=== PATIENT | male | born 1960 | race Caucasian/White ===

== ENCOUNTER 2016-03-09 09:03 | Inpatient (IN) | payer OTHER, MEDICARE ==
[~2016-03-09] VITALS: Ht 180.3 cm; Wt 60.0 kg
[2016-03-09] VITALS (23 sets, daily range): BP systolic 77–113; BP diastolic 48–81; PULSE 72–104; RESP 15–26; TEMP 97.9–98.7; O2SAT 95–100
[~2016-03-09 09:03] MED LIST: Z.0.NO CURRENT MEDS
[2016-03-09] MEDS ORDERED: SODIUM CHLOR 0.9% 1000 ML INJ 1,000 ML IV SCH (10:13)
[2016-03-09] MEDS ORDERED: ASPIRIN 81 MG CHEW TAB PO ONE (10:15)
[2016-03-09] MEDS ORDERED: SODIUM CHLORIDE 0.9% FLUSH 5 ML FLUSH IVF PRN (10:15)
[2016-03-09] MEDS ORDERED: methylPREDNISolone SOD SUCC 125 MG/2 ML VIAL IVP ONE (10:15)
[2016-03-09] MEDS ORDERED: ONDANSETRON HCL 4 MG/2 ML VIAL IVP ONE (10:15)
[2016-03-09] MEDS: NITROGLYCERIN 0.4 MG SL 25 TABS/BTL SL SCH ×3 (10:25→10:53)
[2016-03-09] MEDS: RESP: ALBUTEROL 2.5 MG/IPRATROPIUM 0.5 MG NEB (SCH) INH ×2 (10:27→10:28)
[2016-03-09 10:41] LABS: AUTOMATED NEUTROPHIL # 17.7 TH/MM3 (1.8-7.7); BASOPHIL # 0.1 TH/MM3 (0-0.2); BASOPHIL % 0.3 % (0.0-2.0); HEMATOCRIT 39.1 % (39.0-51.0); HEMO FLAGS DIFF FINAL; LYMPH % 9.4 % (9.0-44.0); MEAN CORPUSCULAR HGB CONC 33.7 % (32.0-36.0); MONO % 6.9 % (0.0-8.0); NEUT % 83.4 % (16.0-70.0); PLATELET COUNT 248 TH/MM3 (150-450); RED CELL DISTRIBUTION WIDTH 13.6 % (11.6-17.2); WHITE BLOOD COUNT 21.2 TH/MM3 (4.0-11.0)
[2016-03-09] MEDS ORDERED: PIPERACIL-TAZO 4.5 GM PREMIX 100 ML IV STA (10:56)
[2016-03-09] MEDS ORDERED: VANCOMYCIN INJ 1,000 MG in SODIUM CHLOR 0.9% 250 ML INJ 250 ML IV STA (10:56)
[2016-03-09] MEDS ORDERED: SODIUM CHLOR 0.9% 1000 ML INJ 1,000 ML IV ONE ×3 (11:00→11:15)
[2016-03-09] MEDS ORDERED: ACETAMINOPHEN 325 MG TAB PO ONE (11:00)
--- NOTE | 2016-03-09 11:00 | RADRPT ---
EXAM DATE/TIME: 03/09/2016 10:40 [facility] COMPARISON: No previous studies available for comparison. INDICATIONS : Shortness of breath. MEDICAL HISTORY : Emphysema. SURGICAL HISTORY : None. ENCOUNTER: Initial ACUITY: 3 days PAIN SCORE: 6/10 LOCATION: Bilateral upper chest FINDINGS: Very minimal parenchymal changes are present in the right base. The left lung is clear. The heart an d pulmonary vascularity are normal. The portion of the bony skeleton visualized is unremarkable. CONCLUSION: Minimal peripheral changes right base with mild hyperinflation. Landry Posadas MD FACR on March 09, 2016 at 10:58 Board Certified Radiologist. This report was verified electronically.
[2016-03-09 11:03] LABS: ANION GAP 13 MEQ/L (5-15); AST (GOT) 25 U/L (15-37); BLOOD UREA NITROGEN 21 MG/DL (7-18); CHLORIDE 99 MEQ/L (98-107); GLOMERULAR FILTRATION RATE 62 ML/MIN (>89); MAGNESIUM 2.3 MG/DL (1.5-2.5); SODIUM (NA) 136 MEQ/L (136-145)
[2016-03-09 11:05] LABS: APTT (PATIENT) 34.1 SEC (24.3-30.1); INTERNATIONAL NORMALIZED RATIO 1.1 RATIO; PROTHROMBIN TIME - PATIENT 11.8 SEC (9.8-11.6)
[2016-03-09 11:09] LABS: ALKALINE PHOSPHATASE 157 U/L (45-117); ALT (GPT) 22 U/L (12-78); CREATINE KINASE 169 U/L (39-308); TOTAL BILIRUBIN ADULT 0.6 MG/DL (0.2-1.0)
--- NOTE | 2016-03-09 11:11 | PD ---
HPI Chief Complaint: STEMI Alert Time Seen by Provider: 10:01 Travel History International Travel<30 days: No Contact w/Intl Traveler<30days: No Traveled to known affect area: No History of Present Illness HPI Patient is a 54 year old male with history of COPD, presents to ER with c/o of chest pain, cough/congestion, with nausea and vomiting and diarrhea since Wednesday. Patient reports that his last meal was on Wednesday morning, reports that he was unable to keep it down. Patient reports that he has been having right-sided chest pain which feels like a "pressure in my chest" which radiates to the left side of his chest as well as diaphoresis, shortness of breath, nausea and vomiting. Patient reports that his chest pain has been intermittent in nature, reports that his chest pain is worse with coughing as well as with exertion. Patient reports that he has not had history of chest pain like this in the past. Patient denies history of coronary disease. Patient reports that he does have a history of COPD, reports that he did go through a whole inhaler this past week and still feels short of breath. Patient reports that he has had no fevers or chills, reports that he has been coughing, reports that as he coughs he has increased productive yellow to green mucus. Denies sick contacts, but reports that he has been homeless and does not have a place to stay at this time PFSH Past Medical History Blood Disorders: No Anxiety: No Depression: No Cancer: No Cardiovascular Problems: No COPD: Yes Diabetes: No Diminished Hearing: No Endocrine: No Genitourinary: No Immune Disorder: No Musculoskeletal: No Neurologic: Yes Psychiatric: Yes Reproductive: No Respiratory: No Migraines: Yes Thyroid Disease: No Past Surgical History Other Surgery: Yes (FOREIGN BODY REMOVED LEFT HAND) Social History Alcohol Use: No Tobacco Use: Yes (2 PPD FOR 40 YEARS, more recently 1 ppd) Substance Use: No Allergies-Medications (Allergen,Severity, Reaction): Coded Allergies: No Known Allergies (Verified , 03/09/16) Reported Meds & Prescriptions Reported Meds & Active Scripts Active Reported Prazosin (Prazosin HCl) 2 Mg Cap 2 Mg PO HS Paroxetine (Paroxetine HCl) 30 Mg Tab 30 Mg PO DAILY Mirtazapine 15 Mg Tab 15 Mg PO BID Clonazepam 0.5 Mg Tab 0.5 Mg PO TID PRN Vitamin D3 (Cholecalciferol) 1,000 Unit Cap 1,000 Units PO DAILY Ranitidine (Ranitidine HCl) 150 Mg Tab 150 Mg PO BID Albuterol Neb (Albuterol Sulfate) 2.5 Mg/3 Ml Neb 2.5 Mg NEB Q4HR NEB PRN Proventil Hfa 6.7 GM Inh (Albuterol Sulfate) 90 Mcg/Act Aer 2 Puff INH Q6H PRN Gabapentin 600 Mg Tab 600 Mg PO QID Review of Systems General / Constitutional: No: Fever Eyes: No: Visual changes HENT: No: Headaches Cardiovascular: Positive: Chest Pain or Discomfort, Palpitations, Diaphoresis, Dyspnea on exertion Respiratory: Positive: Cough, Shortness of Breath, Wheezing Gastrointestinal: Positive: Nausea, Vomiting, Diarrhea, No: Abdominal Pain Genitourinary: No: Dysuria Musculoskeletal: No: Pain Skin: No Rash Neurologic: No: Weakness Psychiatric: No: Depression Endocrine: No: Polydipsia Hematologic/Lymphatic: No: Easy Bruising Physical Exam Narrative GENERAL: moderate distress SKIN: Warm and dry. HEAD: Atraumatic. Normocephalic. EYES: Pupils equal and round. No scleral icterus. No injection or drainage. ENT: No nasal bleeding or discharge. Mucous membranes pink and moist. NECK: Trachea midline. No JVD. CARDIOVASCULAR: Regular rate and rhythm. No murmur appreciated. RESPIRATORY: No accessory muscle use. Clear to auscultation. Breath sounds equal bilaterally. GASTROINTESTINAL: Abdomen soft, non-tender, nondistended. Hepatic and splenic margins not palpable. MUSCULOSKELETAL: No obvious deformities. No clubbing. No cyanosis. No edema. NEUROLOGICAL: Awake and alert. No obvious cranial nerve deficits. Motor grossly within normal limits. Normal speech. PSYCHIATRIC: Appropriate mood and affect; insight and judgment normal. Data Data Last Documented VS Vital Signs Date Time Temp Pulse Resp B/P Pulse Ox O2 Delivery O2 Flow Rate FiO2 03/09/16 12:06 93 19 91/57 99 Nasal Cannula 2.0 03/09/16 09:06 98.7 Orders Electrocardiogram (03/09/16 ) Electrocardiogram (03/09/16 10:11) B-Type Natriuretic Peptide (03/09/16 10:11) Ckmb (Isoenzyme) Profile (03/09/16 10:11) Complete Blood Count With Diff (03/09/16 10:11) Comprehensive Metabolic Panel (03/09/16 10:11) D-Dimer (03/09/16 10:11) Prothrombin Time / Inr (Pt) (03/09/16 10:11) Act Partial Throm Time (Ptt) (03/09/16 10:11) Troponin I (03/09/16 10:11) Lipase (03/09/16 10:11) Chest, Single Ap (03/09/16 10:11) Ecg Monitoring (03/09/16 10:11) Iv Access Insert/Monitor (03/09/16 10:11) Oximetry (03/09/16 10:11) Aspirin Chew (Aspirin Chew) (03/09/16 10:15) Sodium Chloride 0.9% Flush (Ns Flush) (03/09/16 10:15) Nitroglycerin Sl (Nitrostat Sl) (03/09/16 10:15) Magnesium (Mg) (03/09/16 10:11) Influenzae A/B Antigen (03/09/16 10:11) Methylprednisolone So Succ Inj (Solumedr (03/09/16 10:15) Albuterol-Ipratropium Neb (Duoneb Neb) (03/09/16 10:15) Ondansetron Inj (Zofran Inj) (03/09/16 10:15) Sodium Chlor 0.9% 1000 Ml Inj (Ns 1000 M (03/09/16 10:13) Echo 2d Comp W/Dopp(Routine) (03/09/16 ) Lactic Acid Sepsis Protocol (03/09/16 10:56) Blood Culture (03/09/16 10:56) Vancomycin Inj (Vancomycin Inj) (03/09/16 10:56) Piperacil-Tazo 4.5 Gm Premix (Zosyn 4.5 (03/09/16 10:56) Sodium Chlor 0.9% 1000 Ml Inj (Ns 1000 M (03/09/16 11:00) Sodium Chlor 0.9% 1000 Ml Inj (Ns 1000 M (03/09/16 11:00) Acetaminophen (Tylenol) (03/09/16 11:00) Ct Pulmonary Angiogram (03/09/16 11:06) I-Stat Creatinine (03/09/16 10:45) I-Stat Profile (03/09/16 10:45) Sodium Chlor 0.9% 1000 Ml Inj (Ns 1000 M (03/09/16 11:15) Heparin Infusion LYNDA.Q1H (03/09/16 11:11) Heparin Inj (Heparin Inj) (03/09/16 11:15) Heparin Inj (Heparin Inj) (03/09/16 17:15) Heparin Inj (Heparin Inj) (03/09/16 17:15) Heparin-D5w Inj (Heparin-D5w Inj) (03/09/16 11:15) Occult Blood (Hemoccult) Stool (03/09/16 11:11) CKMB (03/09/16 10:25) CKMB% (03/09/16 10:25) Iohexol 350 Inj (Omnipaque 350 Inj) (03/09/16 11:46) Admit Order (Ed Use Only) (03/09/16 12:04) Labs Laboratory Tests Test 03/09/16 03/09/16 10:25 10:45 White Blood Count 21.2 TH/MM3 Red Blood Count 4.00 MIL/MM3 Hemoglobin 13.2 GM/DL Hematocrit 39.1 % Mean Corpuscular Volume 98.0 FL Mean Corpuscular Hemoglobin 33.0 PG Mean Corpuscular Hemoglobin 33.7 % Concent Red Cell Distribution Width 13.6 % Platelet Count 248 TH/MM3 Mean Platelet Volume 8.7 FL Neutrophils (%) (Auto) 83.4 % Lymphocytes (%) (Auto) 9.4 % Monocytes (%) (Auto) 6.9 % Eosinophils (%) (Auto) 0.0 % Basophils (%) (Auto) 0.3 % Neutrophils # (Auto) 17.7 TH/MM3 Lymphocytes # (Auto) 2.0 TH/MM3 Monocytes # (Auto) 1.5 TH/MM3 Eosinophils # (Auto) 0.0 TH/MM3 Basophils # (Auto) 0.1 TH/MM3 CBC Comment DIFF FINAL Differential Comment Prothrombin Time 11.8 SEC Prothromb Time International 1.1 RATIO Ratio Activated Partial 34.1 SEC Thromboplast Time D-Dimer Quantitative (PE/DVT) 5.37 MG/L FEU Sodium Level 136 MEQ/L Potassium Level 4.0 MEQ/L Chloride Level 99 MEQ/L Carbon Dioxide Level 24.0 MEQ/L Anion Gap 13 MEQ/L Blood Urea Nitrogen 21 MG/DL Creatinine 1.20 MG/DL Estimat Glomerular Filtration 62 ML/MIN Rate Random Glucose 96 MG/DL Calcium Level 8.6 MG/DL Magnesium Level 2.3 MG/DL Total Bilirubin 0.6 MG/DL Aspartate Amino Transf 25 U/L (AST/SGOT) Alanine Aminotransferase 22 U/L (ALT/SGPT) Alkaline Phosphatase 157 U/L Total Creatine Kinase 169 U/L Creatine Kinase MB 4.1 NG/ML Troponin I 1.10 NG/ML B-Type Natriuretic Peptide 269 PG/ML Total Protein 7.8 GM/DL Albumin 2.6 GM/DL Lipase 144 U/L Bedside Hemoglobin 11.6 G/DL Bedside Hematocrit 34.0 % Bedside Sodium 137 MMOL/L Bedside Potassium 3.9 MMOL/L Bedside Chloride 104 MMOL/L Bedside Blood Urea Nitrogen 21 MG/DL Bedside Creatinine 0.9 MG/DL Bedside Glucose 93 MG/DL Lactic Acid Level 1.5 mmol/L [facility] Medical Decision Making Medical Screen Exam Complete: Yes Emergency Medical Condition: Yes Interpretation(s) Vital Signs Date Time Temp Pulse Resp B/P Pulse Ox O2 Delivery O2 Flow Rate FiO2 03/09/16 10:28 95 Nasal Cannula 2.00 03/09/16 09:10 105 18 97 Room Air 2 03/09/16 09:06 98.7 104 15 113/81 98 Differential Diagnosis Sepsis, bronchitis, pneumonia, gastroenteritis, acute cholecystitis, acute appendicitis, ACS, arrhythmia, electrolyte abnormality, PE, DVT Vital Signs Date Time Temp Pulse Resp B/P Pulse Ox O2 Delivery O2 Flow Rate FiO2 03/09/16 12:06 93 19 91/57 99 Nasal Cannula 2.0 03/09/16 11:41 20 03/09/16 11:37 100 22 103/65 99 Nasal Cannula 2.0 03/09/16 11:30 20 03/09/16 11:08 100 15 84/53 99 Nasal Cannula 4 03/09/16 11:01 100 16 77/48 99 Nasal Cannula 4 03/09/16 10:57 104 15 89/55 99 Nasal Cannula 4 03/09/16 10:51 99 4.00 03/09/16 10:47 99 17 90/59 99 Room Air 4 03/09/16 10:28 95 Nasal Cannula 2.00 03/09/16 09:10 105 18 97 Room Air 2 03/09/16 09:06 98.7 104 15 113/81 98 CBC & BMP Diagram 03/09/16 10:25 Laboratory Tests Test 03/09/16 03/09/16 10:25 10:45 White Blood Count 21.2 TH/MM3 (4.0-11.0) Red Blood Count 4.00 MIL/MM3 (4.50-5.90) Hemoglobin 13.2 GM/DL (13.0-17.0) Hematocrit 39.1 % (39.0-51.0) Mean Corpuscular Volume 98.0 FL (80.0-100.0) Mean Corpuscular Hemoglobin 33.0 PG (27.0-34.0) Mean Corpuscular Hemoglobin 33.7 % Concent (32.0-36.0) Red Cell Distribution Width 13.6 % (11.6-17.2) Platelet Count 248 TH/MM3 (150-450) Mean Platelet Volume 8.7 FL (7.0-11.0) Neutrophils (%) (Auto) 83.4 % (16.0-70.0) Lymphocytes (%) (Auto) 9.4 % (9.0-44.0) Monocytes (%) (Auto) 6.9 % (0.0-8.0) Eosinophils (%) (Auto) 0.0 % (0.0-4.0) Basophils (%) (Auto) 0.3 % (0.0-2.0) Neutrophils # (Auto) 17.7 TH/MM3 (1.8-7.7) Lymphocytes # (Auto) 2.0 TH/MM3 (1.0-4.8) Monocytes # (Auto) 1.5 TH/MM3 (0-0.9) Eosinophils # (Auto) 0.0 TH/MM3 (0-0.4) Basophils # (Auto) 0.1 TH/MM3 (0-0.2) CBC Comment DIFF FINAL Differential Comment Prothrombin Time 11.8 SEC (9.8-11.6) Prothromb Time International 1.1 RATIO Ratio Activated Partial 34.1 SEC Thromboplast Time (24.3-30.1) D-Dimer Quantitative (PE/DVT) 5.37 MG/L FEU (0.00-0.50) Sodium Level 136 MEQ/L (136-145) Potassium Level 4.0 MEQ/L (3.5-5.1) Chloride Level 99 MEQ/L (98-107) Carbon Dioxide Level 24.0 MEQ/L (21.0-32.0) Anion Gap 13 MEQ/L (5-15) Blood Urea Nitrogen 21 MG/DL (7-18) Creatinine 1.20 MG/DL (0.60-1.30) Estimat Glomerular Filtration 62 ML/MIN (>89) Rate Random Glucose 96 MG/DL (74-106) Calcium Level 8.6 MG/DL (8.5-10.1) Magnesium Level 2.3 MG/DL (1.5-2.5) Total Bilirubin 0.6 MG/DL (0.2-1.0) Aspartate Amino Transf 25 U/L (15-37) (AST/SGOT) Alanine Aminotransferase 22 U/L (12-78) (ALT/SGPT) Alkaline Phosphatase 157 U/L (45-117) Total Creatine Kinase 169 U/L (39-308) Creatine Kinase MB 4.1 NG/ML (0.5-3.6) Troponin I 1.10 NG/ML (0.02-0.05) B-Type Natriuretic Peptide 269 PG/ML (0-100) Total Protein 7.8 GM/DL (6.4-8.2) Albumin 2.6 GM/DL (3.4-5.0) Lipase 144 U/L (73-393) Bedside Hemoglobin 11.6 G/DL (12.0-17.0) Bedside Hematocrit 34.0 % (38.0-51.0) Bedside Sodium 137 MMOL/L (138-146) Bedside Potassium 3.9 MMOL/L (3.5-4.9) Bedside Chloride 104 MMOL/L (98-109) Bedside Blood Urea Nitrogen 21 MG/DL (8-26) Bedside Creatinine 0.9 MG/DL (0.8-1.3) Bedside Glucose 93 MG/DL (60-95) Lactic Acid Level 1.5 mmol/L (0.4-2.0) Narrative Course Patient is a 55-year-old male who presents to emergency room with complaints of chest pain and shortness of breath with nausea vomiting and diarrhea since Wednesday morning. 1) chest pain: Patient reports that his chest pain has been intermittent since Wednesday morning, patient reports chest pain to his right chest which radiates to his left chest, patient reports sensation of "elephant on my chest." Patient was placed on night monitor upon arrival to emergency room. EKG obtained. EKG from [place] (pt was sent to ER from [place]). EKG from [place] at 0833: sinus tach at 110bpm, qt/qtc: 334/452, st seg elevation V3 - ekg repeated at [place], EKG at 1030 sinus tach at 101bpm, qt/qtc: 331/389, st seg elevation V1-V2 - repeat ekg ordered - stemi alert call overhead case reviewed with dr joe who evaluated pt in ER 2) cough/congestion: Patient with history of COPD, patient with decreased breath sounds on evaluation. Patient given Solu-Medrol as well as neb treatments. X-ray of the chest ordered for further evaluations of possible pneumonia. Patient initial vital signs with only tachycardia, patient did not have a SIRS criteria upon initial evaluation. 3) N/V/D - pt with no abdominal pain. Reports increased nausea vomiting and diarrhea after eating [employer] on Wednesday morning. Plan to rehydrate patient and give him antinausea medications. Patient with the white blood cell count of 21,000, patient now tachycardic and hypertensive, patient most likely septic at this time, 30 cc/kg IV fluid bolus ordered as well as lactate and blood cultures and Zosyn and vancomycin. Stat echo was ordered and performed - no evidence of any wall motion defects at this time. Concern for pulmonary embolism versus ACS at this time. Patient will not go to cath last at this time, CTA ordered for further evaluation of possible PE. Heparin bolus and heparin drip ordered for treatment of presumed PE CTA with sinopulmonary embolism with extension into the bilateral upper and lower lobe of the pulmonary arteries, this was reviewed with patient in detail - pt initially refused heparin and heparin gtt, pt now agreeable to heparin case reviewed with Dr Perry who accepts pt to service in ICU pt continues to be unstable in ER, case reviewed with dr perry - decision was made to administer TPA. The risks and benefits of TPA were reviewed with Dr. Perry as well as myself in detail. Patient did sign consent for TPA -patient understands all risks and benefits for TPA. Critical Care Narrative Aggregate critical care time was 75 minutes. Time to perform other separately billable procedures was not included in the critical care time. My time did not include minutes spent treating any other patients simultaneously or on activities that did not directly contribute to the patient's treatment. The services I provided to this patient were to treat and/or prevent clinically significant deterioration that could result in: , decompensation, deterioration I provided critical care services requiring my management, as noted below: Chart data review, documentation time, medication orders and management, vital sign assessments/reviewing monitor data, ordering and reviewing lab tests, ordering and interpreting/reviewing x-rays and diagnostic studies, care of the patient and discussion of the patient with the admitting physicians. Sepsis Criteria SIRS Criteria (2 or more): Heart rate over 90, WBC > 09846, < 4000 or > 10% bands Severe Sepsis (+one): Hypotension Criteria Outcome: Meets SIRS criteria Physician Communication Physician Communication case reviewed with Dr Joe and Dr Crocker Diagnosis Primary Impression: Saddle pulmonary embolus Qualified Code: I26.02 - Acute saddle pulmonary embolism with acute cor pulmonale Additional Impressions: Sepsis Qualified Code: A41.9 - Sepsis, due to unspecified organism NSTEMI (non-ST elevated myocardial infarction) Admitting Information Admitting Physician Requests: Admit Vanita Brown DO Mar 09, 2016 11:11
[2016-03-09 11:12] LABS: I-STAT POTASSIUM 3.9 MMOL/L (3.5-4.9)
[2016-03-09] MEDS ORDERED: HEPARIN SODIUM - IV 10,000 UNITS/10 ML VIAL IV ONE (11:15)
[2016-03-09 11:33] LABS: CKMB 4.1 NG/ML (0.5-3.6)
[2016-03-09] MEDS ORDERED: IOHEXOL 350 MG/ML 10 ML VIAL (for RAD DIAG) IV ONE (11:46)
--- NOTE | 2016-03-09 11:46 | RADRPT ---
EXAM DATE/TIME: 03/09/2016 11:29 [facility] COMPARISON: CHEST SINGLE AP, March 09, 2016, 10:40. INDICATIONS : Right sided chest pain cough for three days. IV CONTRAST: 70 cc Omnipaque 350 (iohexol) IV RADIATION DOSE: 21.31 CTDIvol (mGy) MEDICAL HISTORY : Chronic obstructive pulmonary disease. SURGICAL HISTORY : None. ENCOUNTER: Initial ACUITY: 3 days PAIN SCALE: 8/10 LOCATION: Right chest TECHNIQUE: Volumetric scanning of the chest was performed using a pulmonary embolism protocol MIP images were re constructed. Using automated exposure control and adjustment of the mA and/or kV according to patien t size, radiation dose was kept as low as reasonably achievable to obtain optimal diagnostic quality images. FINDINGS: Patient demonstrates extensive emphysematous changes with varying areas of interstitial or minimal al veolar consolidation in the bases. There is extensive pulmonary embolization inclusive of saddle embo sanket extending into both upper and lower lobe pulmonary arteries. CONCLUSION: Saddle pulmonary embolism with extension into bilateral upper and lower lobe pulmonary arteries. Exte nsive emphysematous changes. Varying areas of alveolar minimal patchy consolidation and interstitial changes in lung bases. Report called to referring physician at 11: 44 AM. Yves Mccain MD on March 09, 2016 at 11:41 Board Certified Radiologist. This report was verified electronically.
[2016-03-09] MEDS: HEPARIN-D5W INJ 250 ML IV SCH ×2 (11:54→23:04)
[2016-03-09] MEDS ORDERED: ALBU6.7H INH (12:08)
[2016-03-09] MEDS ORDERED: ALBU0.08 NEB ×2 (12:08)
[2016-03-09] MEDS ORDERED: GABA600T PO (12:08)
[2016-03-09] MEDS ORDERED: RANI150T PO (12:09)
[2016-03-09] MEDS ORDERED: PRAZ2CAP PO (12:17)
[2016-03-09] MEDS ORDERED: VITA100036 PO (12:17)
[2016-03-09] MEDS ORDERED: PARO30TA2 PO (12:17)
[2016-03-09] MEDS ORDERED: MIRTA15 PO (12:17)
[2016-03-09] MEDS ORDERED: CLON0.5T PO (12:17)
[2016-03-09] MEDS ORDERED: RESP: ALBUTEROL 2.5 MG/IPRATROPIUM 0.5 MG NEB (PRN) INH (12:45)
[2016-03-09] MEDS ORDERED: POTASSIUM CL 40 MEQ/30 ML LIQ UDC PO/TUBE PRN ×2 (12:45)
[2016-03-09] MEDS ORDERED: CHLORHEXIDINE GLUCONATE 2 % 1 PACK (2 CLOTHS) TOP PRN (12:45)
[2016-03-09] MEDS ORDERED: MAGNESIUM OXIDE 400 MG TAB PO PRN (12:45)
[2016-03-09] MEDS ORDERED: MISCELLANEOUS NURSING INFORMATION XX SCH (12:45)
[2016-03-09] MEDS ORDERED: DEXTROSE 50% IN WATER 50 ML VIAL(D50) IV PUSH PRN (12:45)
[2016-03-09] MEDS ORDERED: ACETAMINOPHEN 325 MG TAB PO PRN (12:45)
[2016-03-09] MEDS ORDERED: MAGNESIUM SULFATE INJ 4 GM in SODIUM CHLORIDE 0.9% INJ 92 ML IV PRN (12:45)
[2016-03-09] MEDS ORDERED: POTASSIUM CHLOR 20 MEQ PREMIX 100 ML IV PRN ×2 (12:45)
[2016-03-09] MEDS ORDERED: POTASSIUM PHOSPHATE INJ 30 MMOL in SODIUM CHLOR 0.9% 250 ML INJ 250 ML IV PRN (12:45)
[2016-03-09] MEDS ORDERED: ONDANSETRON HCL 4 MG/2 ML VIAL IV PRN (12:45)
[2016-03-09] MEDS ORDERED: POTASSIUM PHOSPHATE MONOBASIC 500 MG TAB PO/TUBE PRN (12:45)
[2016-03-09] MEDS ORDERED: SODIUM CHLORIDE 0.9% FLUSH 5 ML FLUSH IV FLUSH PRN (12:45)
[2016-03-09] MEDS ORDERED: POTASSIUM CHLOR 40 MEQ PREMIX 100 ML IV PRN ×2 (12:45)
[2016-03-09] MEDS ORDERED: POTASSIUM PHOSPHATE MONOBASIC 500 MG TAB PO PRN (12:45)
[2016-03-09] MEDS ORDERED: SODIUM PHOSPHATE INJ 30 MMOL in SODIUM CHLOR 0.9% 250 ML INJ 240 ML IV PRN (12:45)
[2016-03-09] MEDS ORDERED: MAGNESIUM SULFATE INJ 2 GM in SODIUM CHLORIDE 0.9% INJ 96 ML IV PRN (12:45)
[2016-03-09] MEDS ORDERED: ALTEPLASE IV ONE ×2 (13:00)
[2016-03-09] MEDS ORDERED: STERILE WATER IV ONE ×2 (13:00)
[2016-03-09] MEDS ORDERED: [UNRECOGNIZED DRUG - REMARK] OTHER PRN (13:00)
--- NOTE | 2016-03-09 16:17 | EC ---
Study Study Date:03/09/2016 STUDY CONCLUSIONS SUMMARY - Left ventricle: The cavity size was normal. Wall thickness was normal. Systolic function was normal. The estimated ejection fraction was 60%. Wall motion was normal; there were no regional wall motion abnormalities. - Right ventricle: The cavity size was dilated. Wall thickness was normal. - Tricuspid valve: Mild regurgitation. - Pulmonary arteries: Systolic pressure was moderately increased. PA peak pressure: 55mm Hg (S). If LV function is below 40, please consider prescribing an ACEI or ARB or document rationale for non-use. PROCEDURE DATA STUDY STATUS: Elective. Procedure: Transthoracic echocardiography. Image quality was good. Scanning was performed from the parasternal, apical, and subcostal acoustic windows. Study completion: The patient tolerated the procedure well. Transthoracic echocardiography. M-mode, complete 2D, complete spectral Doppler, and color Doppler. Height: Height: 71in. Weight: Weight: 126.7lb. Body mass index: BMI: 17.7kg/m^2. Body surface area: BSA: 1.74m^2. Patient status: Inpatient. CARDIAC ANATOMY LEFT VENTRICLE: The cavity size was normal. Wall thickness was normal. Systolic function was normal. The estimated ejection fraction was 60%. Wall motion was normal; there were no regional wall motion abnormalities. AORTIC VALVE: Trileaflet; normal thickness leaflets. Doppler: Transvalvular velocity was within the normal range. There was no stenosis. No regurgitation. AORTA: Aortic root: The aortic root was normal in size. MITRAL VALVE: Structurally normal valve. Doppler: Transvalvular velocity was within the normal range. There was no evidence for stenosis. No regurgitation. LEFT ATRIUM: The atrium was normal in size. RIGHT VENTRICLE: The cavity size was dilated. Wall thickness was normal. PULMONIC VALVE: Doppler: Transvalvular velocity was within the normal range. There was no evidence for stenosis. No regurgitation. TRICUSPID VALVE: Structurally normal valve. Doppler: Transvalvular velocity was within the normal range. Mild regurgitation. PULMONARY ARTERY: The main pulmonary artery was normal-sized. Systolic pressure was moderately increased. RIGHT ATRIUM: The atrium was normal in size. PERICARDIUM: There was no pericardial effusion. SYSTEMIC VEINS: Inferior vena cava: The vessel was normal in size. Patient weight: 126.7lb _Ejection fraction:_ 65-75% _Fractional shortening:_ 32% up to 5Kg 5-11.5Kg 11.6-22.9Kg 23-45Kg 45-57Kg Aortic Root 7-13 <17 13-22 17-27 17-27 LA diam 6-13 <23 24-38 33-47 37-40 RVID 10-17 7-15 7-15 7-18 8-17 LVIDd 12-22 <32 24-38 33-47 37-40 LVPW 2-4 3-6 5-7 6-8 7-8 IVS 2-4 3-6 5-7 6-8 7-8 BASIC MEASUREMENTS ADULT Normal Left ventricle LV internal dimension, ED, chordal level, *31.8 mm 43-52 PLAX LV internal dimension, ES, chordal level, *22 mm 23-38 PLAX Fractional shortening, chordal level, PLAX 31 % >29 LV posterior wall thickness, ED 8.05 mm IVS/LVPW ratio, ED 1.01 <1.3 Ventricular septum Septal thickness, ED 8.11 mm Aortic valve Leaflet separation 22 mm 15-26 Aorta Root diameter, ED 34 mm Left atrium Anterior-posterior dimension 27 mm Anterior-posterior dimension index 1.55 cm/m^2 <2.2 BASIC MEASUREMENTS ADULT Normal Aortic valve Leaflet separation 22 mm 15-26 DOPPLER MEASUREMENTS ADULT Normal Main pulmonary artery Pressure, S *55 mm Hg =30 Tricuspid valve Regurgitant peak velocity 293 cm/s Peak RV-RA gradient, S 34 mm Hg Maximal regurgitant velocity 293 cm/s Right ventricle RV pressure, S *56 mm Hg <30 Pulmonic valve Peak velocity, S 57.1 cm/s LEGEND: Mean values are shown as u=mean value. Asterisk (*) nathan values outside specified normal range. Prepared and signed by Ayden Schumacher [id number]
--- NOTE | 2016-03-09 17:07 | EKG ---
Date Performed: 03/09/2016 Time Performed: 10:30:39 PTAGE: 55 years EKG: SINUS TACHYCARDIA MARKED RIGHT AXIS DEVIATION INCOMPLETE RIGHT BUNDLE BRANCH BLOCK ANTEROSE PTAL MYOCARDIAL INFARCTION ACUTE IA NO PREVIOUS TRACING DOCTOR: Lorraine Borden Interpretating Date/Time 03/09/2016 17:05:55
--- NOTE | 2016-03-09 17:08 | EKG ---
Date Performed: 03/09/2016 Time Performed: 10:46:33 PTAGE: 55 years EKG: Sinus rhythm WITH SHORT GA INTERVAL MARKED LEFT AXIS DEVIATION SEPTAL MYOCARDIAL INFARCTION MODERATE T-WAVE ABNOR MALITY, CONSIDER ANTERIOR ISCHEMIA ABNORMAL ECG Compared to prior tracing no significant change INTER PRETATION BASED ON A DEFAULT AGE OF 40 YEARS PREVIOUS TRACING : 03/09/2016 10.30 DOCTOR: Lorraine Borden Interpretating Date/Time 03/09/2016 17:06:07
[2016-03-09] MEDS ORDERED: HEPARIN SODIUM - IV 10,000 UNITS/10 ML VIAL IV PRN ×2 (17:15)
[2016-03-09] MEDS: INSULIN NovoLIN REGULAR SUPPLEMENTAL SCALE SQ SCH ×2 (18:00→23:18)
[2016-03-09] MEDS: DOCUSATE SODIUM 50 MG/SENNA 8.6 MG TAB PO SCH (21:00)
--- NOTE | 2016-03-09 21:55 | HHI.HP ---
[facility] Service Critical Care Medicine Primary Care Physician Joey [facility] Admission Diagnosis Saddle Pulmonary embolism, Sepsis Diagnosis: Chief Complaint: chest pain Travel History International Travel<30 Days: No Contact w/Intl Traveler <30 Da: No Traveled to Known Affected Are: No History of Present Illness This is a 54-year-old male with a long past history of smoking who presents to the emergency department complaining of chest pain since Wednesday morning. Patient initially was mildly hypotensive. Patient endorsed shortness of breath nausea and vomiting. Initially there were some cconcern over st elevations in a STEMI alert was called. Dr. Rosario evaluated the patient and ordered a stat echocardiogram which demonstrated McConnel's sign, RV strain, RV dilation, severe RV dysfunction. Laboratory data is pertinent for a mildly elevated BNP and mildly elevated troponin. This prompted a stat CT pulmonary angiogram which demonstrated large saddle embolus with extension into the subsegmental pulmonary arteries. Critical care medicine is consulted to evaluate and manage his massive pulmonary embolus with evidence of RV strain. He was also initially hypotensive with systolic in 80s and given a 1 L fluid bolus. On my evaluation is slightly more stable with systolic 91. Of note, he is recently homeless and for the last few weeks he is lives out of his car and he spent long periods of time sitting and sleeping in his car in smaller spaces and relatively immobile. Review of Systems Constitutional: DENIES: Diaphoretic episodes, Chills, Dizziness Respiratory: DENIES: Apneas, Cough, Snoring, Wheezing, Hemoptysis, Sputum production, Shortness of breath Cardiovascular: DENIES: Chest pain, Palpitations, Syncope, Dyspnea on Exertion , PND, Lower Extremity Edema, Orthopnea, Claudication Gastrointestinal: DENIES: Abdominal pain, Black stools, Bloody stools, Constipation, Diarrhea, Nausea, Vomiting Hematologic/lymphatic: DENIES: Bruising Neurologic: DENIES: Headache Past Family Social History Allergies: Coded Allergies: No Known Allergies (Verified , 03/09/16) Past Medical History cervical spondylosis. no history of easy bruising, frequent bleeding, or bleeding problems, coagulopathy. Past Surgical History finger fracture repair Reported Medications none Active Ordered Medications see MAR Family History no family history of bleeding diatheses. Social History smokes 1ppd x many years. denies etoh. denies other drugs. Physical Exam Vital Signs Vital Signs Date Time Temp Pulse Resp B/P Pulse Ox O2 Delivery O2 Flow Rate FiO2 03/09/16 19:53 100 Nasal Cannula 4.00 03/09/16 19:53 97.9 75 20 98/63 100 03/09/16 19:01 75 22 97/66 98 Nasal Cannula 4 03/09/16 18:00 78 17 95/68 98 Nasal Cannula 4.0 03/09/16 17:00 78 22 94/64 98 Nasal Cannula 4.0 03/09/16 16:00 84 24 92/62 98 Nasal Cannula 4.0 03/09/16 15:35 84 22 102/69 97 Nasal Cannula 4.0 03/09/16 15:00 87 20 98/65 97 Nasal Cannula 4.0 03/09/16 14:35 85 19 91/62 97 Nasal Cannula 4.0 03/09/16 14:01 89 17 89/62 99 Nasal Cannula 4.0 03/09/16 13:31 92 24 100/64 98 Nasal Cannula 2.0 03/09/16 13:04 97 26 108/67 97 Nasal Cannula 2.0 03/09/16 12:18 95 18 91/59 98 Nasal Cannula 2.0 03/09/16 12:06 93 19 91/57 99 Nasal Cannula 2.0 03/09/16 11:41 20 03/09/16 11:37 100 22 103/65 99 Nasal Cannula 2.0 03/09/16 11:30 20 03/09/16 11:08 100 15 84/53 99 Nasal Cannula 4 03/09/16 11:01 100 16 77/48 99 Nasal Cannula 4 03/09/16 10:57 104 15 89/55 99 Nasal Cannula 4 03/09/16 10:51 99 4.00 03/09/16 10:47 99 17 90/59 99 Room Air 4 03/09/16 10:28 95 Nasal Cannula 2.00 03/09/16 09:10 105 18 97 Room Air 2 03/09/16 09:06 98.7 104 15 113/81 98 Physical Exam gen: middle aged male, lying in bed. heent: pupils equal, round, reactive. mucous membranes moist. neck: +jvd. trachea midline. chest: equal chest rise. clear to auscultation. mildly tachypneic. cv: s1 s2 with loud p2 and rv heave. abd: soft, nontender, nondistended. no guarding. extr: no peripheral edema. distal pulses 1+ neuro: rass 0. cam -. gcs 15. no gross focal motor sensory deficits. Laboratory Laboratory Tests Test 03/09/16 03/09/16 10:25 10:45 White Blood Count 21.2 Red Blood Count 4.00 Hemoglobin 13.2 Hematocrit 39.1 Mean Corpuscular Volume 98.0 Mean Corpuscular Hemoglobin 33.0 Mean Corpuscular Hemoglobin 33.7 Concent Red Cell Distribution Width 13.6 Platelet Count 248 Mean Platelet Volume 8.7 Neutrophils (%) (Auto) 83.4 Lymphocytes (%) (Auto) 9.4 Monocytes (%) (Auto) 6.9 Eosinophils (%) (Auto) 0.0 Basophils (%) (Auto) 0.3 Neutrophils # (Auto) 17.7 Lymphocytes # (Auto) 2.0 Monocytes # (Auto) 1.5 Eosinophils # (Auto) 0.0 Basophils # (Auto) 0.1 CBC Comment DIFF FINAL Differential Comment Prothrombin Time 11.8 Prothromb Time International 1.1 Ratio Activated Partial 34.1 Thromboplast Time D-Dimer Quantitative (PE/DVT) 5.37 Sodium Level 136 Potassium Level 4.0 Chloride Level 99 Carbon Dioxide Level 24.0 Anion Gap 13 Blood Urea Nitrogen 21 Creatinine 1.20 Estimat Glomerular Filtration 62 Rate Random Glucose 96 Calcium Level 8.6 Magnesium Level 2.3 Total Bilirubin 0.6 Aspartate Amino Transf 25 (AST/SGOT) Alanine Aminotransferase 22 (ALT/SGPT) Alkaline Phosphatase 157 Total Creatine Kinase 169 Creatine Kinase MB 4.1 Troponin I 1.10 B-Type Natriuretic Peptide 269 Total Protein 7.8 Albumin 2.6 Lipase 144 Bedside Hemoglobin 11.6 Bedside Hematocrit 34.0 Bedside Sodium 137 Bedside Potassium 3.9 Bedside Chloride 104 Bedside Blood Urea Nitrogen 21 Bedside Creatinine 0.9 Bedside Glucose 93 Lactic Acid Level 1.5 Date/Time Procedure Status Source Growth 03/09/16 10:45 Aerobic Blood Culture Received Blood Peripheral Pending 03/09/16 10:45 Anaerobic Blood Culture Received Blood Peripheral Pending 03/09/16 10:28 Influenza Types A,B Antigen (JUDIE) - Final Complete Nasal Aspirate NEGATIVE FOR FLU A AND B ANTIGEN.... Result Diagram: 03/09/16 1025 03/09/16 1025 Assessment and Plan Assessment and Plan Assessment: This is a 55-year-old male with really only past medical history of smoking who now has a massive saddle pulmonary embolus with hemodynamic compromise. I have spoken with Dr. Chery the on-call CT surgeon, and he feels that the patient would not be an appropriate candidate for open pulmonary embolectomy unless he fails medical management first. I discussed the care with both Dr. Rosario and Dr. Butler the interventional radiologist, together we all feel that systemic TPA may be a better option for him clinically then catheter directed TPA, given the size of the embolus and the degree of hemodynamic compromise. I also talked to the ER physician, who again agrees with the plan of systemic thrombolysis. I had a long conversation with the patient were explained the significant risks of bleeding including major intracranial or GI bleeding with systemic thrombolysis. However, explained that there was likely a larger risk of sudden cardiac with this degree of massive pulmonary embolus. The patient understood these risks and agreed to pursue thrombolysis. We will proceed with tPA 100 mg. I've also spoken to Dr. Rosario, and we believe that he is at high risk for ongoing or rethrombosis after TPA, and we believe that an echo regulation with IV heparin should be instituted at the earliest safest time. We both agree that this time is likely 6 hours post TPA infusion. For now he remains critically ill with very high risk of sudden cardiac . Active problems: Massive saddle pulmonary embolus Acute severe right heart dysfunction Acute severe pulmonary hypertension Plan: Admit to the ICU IV TPA 100 mg every 2 hours Every hour neuro checks Before TPA, Will place Caceres catheter for accurate I's and O's. Trend hemoglobins If the patient becomes worseningly unstable, we'll start epinephrine for inotropic support Wean oxygen by nasal cannula for goal SPO2 greater than 92% Incentive spirometer to bedside We will need follow-up echo in about a week. Restart heparin infusion, no bolus, goal PTT 60-80, after 6 hours. Clear liquid diet Daily BMP, CBC SCDs Protonix for GI prophylaxis This patient remains critically ill with one or more organ systems which are or may become a threat to life. I have spent in excess of 50 minutes discontinuously in the care and management of this patient. This time is exclusive of procedures, and includes, but is not limited to, evaluation of the patient, review of the medical record, discussions with family, consultants, nursing staff, or respiratory therapy, and documentation in the medical record. Code Status Full Code Discussed Condition With ER physician, Dr. Rosario with cardiology, Dr. Butler with IR, Dr. Fallon with CT surgery. Leonides Crocker MD Mar 09, 2016 21:55
[2016-03-09 22:27] LABS: APTT (PATIENT) 37.7 SEC (24.3-30.1)
[2016-03-09] MEDS: SODIUM CHLORIDE 0.9% FLUSH 5 ML FLUSH IV FLUSH SCH (23:13)
[2016-03-10] VITALS (13 sets, daily range): BP systolic 81–112; BP diastolic 53–77; PULSE 61–89; RESP 15–20; TEMP 97.7–98.6; O2SAT 97–100
[2016-03-10 00:15] LABS: REVIEW FLAG FINAL
[2016-03-10] MEDS: CHLORHEXIDINE GLUCONATE 2 % 1 PACK (2 CLOTHS) TOP SCH (02:46)
[2016-03-10] MEDS: INSULIN NovoLIN REGULAR SUPPLEMENTAL SCALE SQ SCH ×3 (05:42→16:00)
--- NOTE | 2016-03-10 06:09 | MB ---
cc: COSME VUONG DO DATE OF CONSULTATION 03/09/2016 REASON FOR CONSULTATION STEMI Alert. HISTORY OF PRESENT ILLNESS Vihn Leonard is a pleasant 54-year-old male who presented to [facility] on March 09, 2016, with a complaint of chest pain. He states that the chest pain started two days ago on Wednesday morning. At that time he felt like he ate some bad [employer] and then got nausea, vomiting and diarrhea. He started having right-sided chest pain which felt sharp and radiated to his left side. He did mention pressure in his chest at one point but the pain seems to be more sharp in nature and intensified by moving in a deep breath. He also was diaphoretic and short of breath. It appears that he originally presented to the [facility] and they sent him here. EKG at the [facility] shows incomplete right bundle branch block with minimal elevation anteriorly. Upon arrival to [facility] EKG was done which showed sinus tachycardia, incomplete right bundle branch block with minimal elevation anteriorly concerning for a right strain pattern. I was called emergently due to possible ST-elevation myocardial infarction. PAST MEDICAL HISTORY 1. COPD. 2. Hypertension. 3. Anxiety. 4. Depression. 5. Gastroesophageal reflux disease. PAST SURGICAL HISTORY Foreign body removed from left hand. ALLERGIES No known drug allergies. MEDICATIONS 1. Prazosin 2 mg every night 2. Gabapentin 600 mg q.i.d. 3. Mirtazapine 15 mg b.i.d. 4. Paroxetine 30 mg daily 5. Clonazepam 0.5 mg t.i.d. as needed for anxiety. 6. Albuterol 2 puffs every 6 hours as needed for shortness of breath. 7. Ranitidine 150 mg b.i.d. 8. Vitamin D3 1000 units daily. SOCIAL HISTORY Denies alcohol or substance abuse. Does smoke two packs a day for 40 years, but more recently smoking around 1 pack per day. FAMILY HISTORY Denies premature coronary artery disease or sudden cardiac within the family. REVIEW OF SYSTEMS Fourteen systems were reviewed in the emergency room records and above pertinent positives and negatives above, otherwise negative. PHYSICAL EXAMINATION VITAL SIGNS: Temperature 98.7, heart rate 104, blood pressure 113/81, respirations 15, pulse ox 98%. IN GENERAL: The patient appears in moderate distress. He appears older than his stated age. Extraocular muscles intact. Poor dentition. Mucous membranes moist. NECK: Supple. No JVD at 45 degrees. No carotid bruits heard bilaterally. Carotid upstroke is brisk in nature. HEART: Tachycardiac. Positive first and second heart sounds with no murmurs noted. LUNGS: Decreased breath sounds throughout with a little air movement. No overt wheezes, rales or rhonchi. ABDOMEN: Soft, nontender, nondistended. No organomegaly noted. EXTREMITIES: No clubbing, cyanosis or edema. Femoral and distal pulses intact bilaterally. NEUROLOGICALLY: No focal deficits. OSTEOPATHIC EXAM: No kyphoscoliosis, lordosis or paraspinal tender points. LABORATORY FINDINGS White blood cells 21.2, hemoglobin 13.2, hematocrit 39.1, platelets 248. D-dimer 5.37. Potassium 3.9, BUN 21, creatinine 1.20. Troponin 1.1. BNP to 69. ELECTROCARDIOGRAM (March 09, 2016 at 10:30) Sinus tachycardia at 101 beats per minute, right axis deviation, incomplete right bundle branch block, minimal ST elevations anteriorly, concern for possible acute OR. IMPRESSIONS 1. Pleuritic chest pain which is atypical for ST-elevation myocardial infarction. 2. Extensive saddle pulmonary embolus by CTA. 3. Elevated troponin secondary to saddle embolus. 4. History of hypertension. 5. History of COPD. RECOMMENDATIONS 1. Vinh Leonard originally presented as a STEMI Alert. Repeat EKG showed minimal S-T elevation. As there was a concern for possible STEMI vs pulmonary embolism, a STAT echo was ordered to look for wall motion abnormalities as well as right ventricular strain. 2. STAT echo was done showing a hyperdynamic left ventricle with no wall motion abnormalities. Right ventricle appears to be extensively dilated with Garcia sign. 3. At this point it was felt prudent that the patient should be started on a heparin drip with a heparin bolus for presumed PE. 4. At that time he underwent a CTA of the chest which showed a large saddle embolus. 5. Dr. Butler spoke with me and I agree that, because of the patient's hypotension and extensive thrombus, considerations should be made for systemic TPA versus embolectomy. 6. At this time Dr. Butler took over care for the pulmonary embolus from Dr. Brown and myself. He did discuss with me doing systemic TPA and I agreed that it was Mr. Horacio's best option in his current situation. 7. We will continue to follow. 8. He will need a repeat echo in 5-7 days to look at his overall right ventricular strain. 9. Further recommendations will be made based on the hospital course. Thank you for allowing me to see Vinh Leonard. If there are any questions, please do not hesitate to call. Cosme Vuong DO VGP/SSB /4:19 PM /5:52 AM [email or web address]
[2016-03-10 09:00] LABS: MEAN CELL VOLUME 98.9 FL (80.0-100.0); MEAN CORPUSCULAR HGB CONC 33.4 % (32.0-36.0); PLATELET COUNT 205 TH/MM3 (150-450); RED BLOOD COUNT 3.23 MIL/MM3 (4.50-5.90); RED CELL DISTRIBUTION WIDTH 13.6 % (11.6-17.2); REVIEW FLAG FINAL
[2016-03-10] MEDS ORDERED: PANTOPRAZOLE SODIUM 40 MG VIAL IV SCH (09:00)
[2016-03-10] MEDS ORDERED: PNEUMOCOCCAL POLYVALENT INJ 25 MCG/0.5 ML SYR IM ONE (09:00)
[2016-03-10] MEDS ORDERED: INFLUENZA VIRUS VACCINE (QUADRIVALENT) 0.5 ML SYR IM ONE (09:00)
[2016-03-10 09:10] LABS: APTT (PATIENT) 79.3 SEC (24.3-30.1)
[2016-03-10] MEDS ORDERED: DEXTROSE 50% IN WATER 50 ML VIAL(D50) IV PUSH PRN (09:45)
[2016-03-10] MEDS: DOCUSATE SODIUM 50 MG/SENNA 8.6 MG TAB PO SCH ×2 (09:46→20:20)
[2016-03-10] MEDS: SODIUM CHLORIDE 0.9% FLUSH 5 ML FLUSH IV FLUSH SCH ×2 (09:46→20:19)
[2016-03-10 09:49] LABS: BICARBONATE 25.6 MEQ/L (21.0-32.0); POTASSIUM 4.3 MEQ/L (3.5-5.1)
[2016-03-10] MEDS: ENOXAPARIN SODIUM 100 MG/ML SYRINGE SQ SCH (10:51)
--- NOTE | 2016-03-10 11:18 | HHI.CCPN ---
Subjective Remarks/Hospital Course Hospital Course: This is a 54-year-old male with a long past history of smoking who presents to the emergency department complaining of chest pain since Wednesday morning. Patient initially was mildly hypotensive. Patient endorsed shortness of breath nausea and vomiting. Initially there were some cconcern over st elevations in a STEMI alert was called. Dr. Rosario evaluated the patient and ordered a stat echocardiogram which demonstrated McConnel's sign, RV strain, RV dilation, severe RV dysfunction. Laboratory data is pertinent for a mildly elevated BNP and mildly elevated troponin. This prompted a stat CT pulmonary angiogram which demonstrated large saddle embolus with extension into the subsegmental pulmonary arteries. Critical care medicine is consulted to evaluate and manage his massive pulmonary embolus with evidence of RV strain. He was also initially hypotensive with systolic in 80s and given a 1 L fluid bolus. On my evaluation is slightly more stable with systolic 91. Of note, he is recently homeless and for the last few weeks he is lives out of his car and he spent long periods of time sitting and sleeping in his car in smaller spaces and relatively immobile. Subjective: 03/10: doing very well this morning. hemodynamically much more stable. no obvious signs of bleeding. tolerating breakfast. hgb from 13 to 10.7 yesterday. will trend. Objective Vital Signs Date Time Temp Pulse Resp B/P Pulse Ox O2 Delivery O2 Flow Rate FiO2 03/10/16 10:00 89 03/10/16 09:34 99 Nasal Cannula 2.00 03/10/16 08:00 98.6 16 103/62 Intake and Output 03/09/16 03/09/16 03/10/16 08:00 16:00 00:00 Intake Total 2000 ml 0 ml Output Total 650 ml Balance 2000 ml -650 ml Result Diagram: 03/10/16 0626 03/10/16 0626 Other Results Microbiology Date/Time Procedure Status Source Growth 03/09/16 10:28 Influenza Types A,B Antigen (JUDIE) - Final Complete Nasal Aspirate NEGATIVE FOR FLU A AND B ANTIGEN.... Objective Remarks gen: middle aged male, lying in bed. heent: pupils equal, round, reactive. mucous membranes moist. neck: no jvd. trachea midline. chest: equal chest rise. clear to auscultation. unlabored. cv: s1 s2 with loud p2 and rv heave. abd: soft, nontender, nondistended. no guarding. extr: no peripheral edema. distal pulses 1+ neuro: rass 0. cam -. gcs 15. no gross focal motor sensory deficits. A/P Assessment and Plan Assessment: This is a 55-year-old male with massive pulmonary embolism with hemodynamic compromise and RV strain. Now s/p systemic TPA. He has stabilized. we will transition him to SQ lovenox for anticoagulation. He will need follow- up limited echocardiogram in a few days (ordered for Wednesday) to re-evaluate RV function s/p thrombolysis. If he still has significant pulmonary hypertension, he would be a good candidate for sildenafil at that time. Otherwise, we will transition him to floor with telemetry and d/c grant. He is still at risk of sudden cardiac post massive PE. Active problems: Massive saddle pulmonary embolus Acute severe right heart dysfunction- improving Acute severe pulmonary hypertension Plan: d/c grant --transition to floor status with telemetry --will consult hospitalist service to follow --Lovenox 90mg sq q24h -- d/c heparin drip -- continue to trend H&H Wean oxygen by nasal cannula for goal SPO2 greater than 92% Incentive spirometer to bedside We will need follow-up echo, I have ordered limited echo to eval RV function on monday 03/13. -- heart healthy diet Daily BMP, CBC SCDs Pepcid for GI prophylaxis Leonides Crocker MD Mar 10, 2016 11:18
--- NOTE | 2016-03-10 12:52 | PD.CARD.PN ---
Subjective Subjective Remarks Doing well, no chest pain, no shortness of breath Objective Medications Current Medications Medications (Trade) Dose Ordered Sig/Rupesh Route Start Time Stop Time Status Last Admin Miscellaneous Information Parenteral anticoagulation may be start... UNSCH PRN OTHER 03/09/16 13:00 03/10/16 12:59 Magnesium Oxide 800 mg 800 mg UNSCH PRN PO 03/09/16 12:45 Magnesium Sulfate 4 gm/Sodium Chloride 100 ml @ 50 mls/hr UNSCH PRN IV 03/09/16 12:45 Magnesium Sulfate 2 gm/Sodium Chloride 100 ml @ 50 mls/hr UNSCH PRN IV 03/09/16 12:45 Potassium Chloride 100 ml @ 50 mls/hr Q2H PRN IV 03/09/16 12:45 Potassium Chloride 100 ml @ 50 mls/hr Q2H PRN IV 03/09/16 12:45 Potassium Chloride 100 ml @ 50 mls/hr Q2H PRN IV 03/09/16 12:45 (KCl 40 Meq Premix Inj) 100 ml @ 25 mls/hr UNSCH PRN IV 03/09/16 12:45 (KCl 40 Meq/30 ml Liq) 40 meq UNSCH PRN PO/TUBE 03/09/16 12:45 (KCl 40 Meq/30 ml Liq) 40 meq UNSCH PRN PO/TUBE 03/09/16 12:45 (K-Phos) 2,000 mg Q4H PRN PO 03/09/16 12:45 Potassium Phosphate 2000 mg 2,000 mg UNSCH PRN PO/TUBE 03/09/16 12:45 Potassium Phosphate 30 mmol/ Sodium Chloride 260 ml @ 42 mls/hr UNSCH PRN IV 03/09/16 12:45 (Sodium Phosphate Inj/NS 250 ml Inj) 250 ml @ 42 mls/hr UNSCH PRN IV 03/09/16 12:45 (NS Flush) 2 ml UNSCH PRN IV FLUSH 03/09/16 12:45 (NS Flush) 2 ml BID IV FLUSH 03/09/16 21:00 03/10/16 09:46 (Tylenol) 650 mg Q6H PRN PO 03/09/16 12:45 (Zofran Inj) 4 mg Q6H PRN IV 03/09/16 12:45 (Zita-Colace) 2 tab BID PO 03/09/16 21:00 03/10/16 09:46 Miscellaneous Information 1 Q361D XX 03/09/16 12:45 03/09/16 22:00 (Chlorhexidine 2% Cloth) 3 pack Taper DAILY@04 TOP 03/10/16 04:00 03/06/17 03:59 03/10/16 02:46 (Chlorhexidine 2% Cloth) 3 pack UNSCH PRN TOP 03/09/16 12:45 (Lovenox Inj) 90 mg Q24H SQ 03/10/16 11:00 03/10/16 10:51 (D50w (Vial) Inj) 25 ml UNSCH PRN IV PUSH 03/10/16 09:45 (Pepcid) 20 mg BID PO 03/10/16 21:00 Vital Signs / I&O Vital Signs Date Time Temp Pulse Resp B/P Pulse Ox O2 Delivery O2 Flow Rate FiO2 03/10/16 10:00 89 03/10/16 09:34 99 Nasal Cannula 2.00 03/10/16 08:00 98.6 74 16 103/62 99 03/10/16 08:00 74 03/10/16 07:00 98 Nasal Cannula 4.00 03/10/16 06:00 69 03/10/16 04:00 75 03/10/16 04:00 97.8 75 20 112/77 100 03/10/16 02:00 61 03/10/16 00:30 99 Nasal Cannula 4.00 03/10/16 00:00 74 03/10/16 00:00 97.7 74 20 91/61 99 03/09/16 22:00 72 03/09/16 20:00 75 03/09/16 20:00 97.9 79 20 91/62 100 03/09/16 19:53 100 Nasal Cannula 4.00 03/09/16 19:53 100 Nasal Cannula 4.00 03/09/16 19:53 97.9 75 20 98/63 100 03/09/16 19:01 75 22 97/66 98 Nasal Cannula 4 03/09/16 18:00 78 17 95/68 98 Nasal Cannula 4.0 03/09/16 17:00 78 22 94/64 98 Nasal Cannula 4.0 03/09/16 16:00 84 24 92/62 98 Nasal Cannula 4.0 03/09/16 15:35 84 22 102/69 97 Nasal Cannula 4.0 03/09/16 15:00 87 20 98/65 97 Nasal Cannula 4.0 03/09/16 14:35 85 19 91/62 97 Nasal Cannula 4.0 03/09/16 14:01 89 17 89/62 99 Nasal Cannula 4.0 03/09/16 13:31 92 24 100/64 98 Nasal Cannula 2.0 03/09/16 13:04 97 26 108/67 97 Nasal Cannula 2.0 I/O 03/09/16 03/09/16 03/09/16 03/10/16 03/10/16 03/10/16 07:00 15:00 23:00 07:00 15:00 23:00 Intake Total 2000 ml 0 ml 73 ml Output Total 650 ml 300 ml Balance 2000 ml -650 ml -227 ml Intake Oral 0 ml 0 ml IV Total 2000 ml 73 ml Output Urine Total 650 ml 300 ml # Bowel Movements 1 0 Physical Exam GENERAL: NAD, AAOx3 SKIN: Warm and dry. HEAD: Atraumatic. Normocephalic. EYES: Pupils equal and round. No scleral icterus. No injection or drainage. ENT: No nasal bleeding or discharge. Mucous membranes pink and moist. NECK: Trachea midline. No JVD. CARDIOVASCULAR: Regular rate and rhythm. RESPIRATORY: No accessory muscle use. Decreased breath sounds bilaterally GASTROINTESTINAL: Abdomen soft, non-tender, nondistended. Hepatic and splenic margins not palpable. MUSCULOSKELETAL: Extremities without clubbing, cyanosis, or edema. No obvious deformities. NEUROLOGICAL: Awake and alert. No obvious cranial nerve deficits. Motor grossly within normal limits. Five out of 5 muscle strength in the arms and legs. Normal speech. PSYCHIATRIC: Appropriate mood and affect; insight and judgment normal. Laboratory Laboratory Tests Test 03/09/16 03/09/16 03/09/16 03/10/16 19:55 21:52 23:34 06:26 Nasal Screen MRSA (PCR) NEGATIVE Activated Partial 37.7 SEC 79.3 SEC Thromboplast Time Hemoglobin 11.6 GM/DL 10.7 GM/DL Hematocrit 35.0 % 32.0 % White Blood Count 13.0 TH/MM3 Red Blood Count 3.23 MIL/MM3 Mean Corpuscular Volume 98.9 FL Mean Corpuscular Hemoglobin 33.0 PG Mean Corpuscular Hemoglobin 33.4 % Concent Red Cell Distribution Width 13.6 % Platelet Count 205 TH/MM3 Mean Platelet Volume 9.3 FL Sodium Level 141 MEQ/L Potassium Level 4.3 MEQ/L Chloride Level 107 MEQ/L Carbon Dioxide Level 25.6 MEQ/L Anion Gap 8 MEQ/L Blood Urea Nitrogen 20 MG/DL Creatinine 0.77 MG/DL Estimat Glomerular Filtration 104 ML/MIN Rate Random Glucose 96 MG/DL Calcium Level 7.8 MG/DL Assessment and Plan Problem List: (1) Saddle pulmonary embolus (2) NSTEMI (non-ST elevated myocardial infarction) Assessment and Plan 1) Doing well, agree with Lovenox per Dr. Crocker 2) Follow up echo on Wednesday 3) Needs social work coordinator/case management to help with a meeting he has for help with housing and rescheduling Problem Qualifiers (1) Saddle pulmonary embolus: Qualified Code: I26.02 - Acute saddle pulmonary embolism with acute cor pulmonale Cosme Rosario DO Mar 10, 2016 12:52
[2016-03-10] MEDS ORDERED: PILL SPLITTER OTHER PRN (18:15)
[2016-03-10] MEDS: FAMOTIDINE 20 MG TAB PO SCH (20:19)
[2016-03-10] MEDS: clonazePAM 0.5 MG TAB PO PRN (20:19)
[2016-03-10] MEDS: MIRTAZAPINE 15 MG TAB PO SCH (20:19)
[2016-03-11] VITALS (10 sets, daily range): BP systolic 89–112; BP diastolic 57–67; PULSE 57–77; RESP 14–28; TEMP 97.5–98.6; O2SAT 95–100
[2016-03-11] MEDS: CHLORHEXIDINE GLUCONATE 2 % 1 PACK (2 CLOTHS) TOP SCH ×2 (04:00→19:43)
[2016-03-11 05:24] LABS: HEMATOCRIT 35.1 % (39.0-51.0); MEAN CELL VOLUME 98.7 FL (80.0-100.0); MEAN CORPUSCULAR HEMOGLOBIN 33.7 PG (27.0-34.0); MEAN CORPUSCULAR HGB CONC 34.1 % (32.0-36.0); PLATELET COUNT 272 TH/MM3 (150-450); RED BLOOD COUNT 3.56 MIL/MM3 (4.50-5.90); RED CELL DISTRIBUTION WIDTH 13.3 % (11.6-17.2); REVIEW FLAG FINAL; WHITE BLOOD COUNT 9.6 TH/MM3 (4.0-11.0)
[2016-03-11 05:53] LABS: BICARBONATE 28.8 MEQ/L (21.0-32.0); POTASSIUM 3.8 MEQ/L (3.5-5.1)
[2016-03-11] MEDS: INSULIN NovoLIN REGULAR SUPPLEMENTAL SCALE SQ SCH ×4 (06:16→19:43)
[2016-03-11] MEDS: FAMOTIDINE 20 MG TAB PO SCH ×2 (08:44→19:52)
[2016-03-11] MEDS: MIRTAZAPINE 15 MG TAB PO SCH ×2 (08:44→19:52)
[2016-03-11] MEDS: SODIUM CHLORIDE 0.9% FLUSH 5 ML FLUSH IV FLUSH SCH ×2 (08:44→19:43)
[2016-03-11] MEDS: DOCUSATE SODIUM 50 MG/SENNA 8.6 MG TAB PO SCH ×2 (08:45→19:52)
--- NOTE | 2016-03-11 09:55 | HHI.PR ---
Subjective Remarks Follow up pulmonary embolus, anemia. Patient states that his shortness of breath is improving. He denies chest pain at the moment. He is requesting to have his psychiatric medications restarted. Objective Vitals Vital Signs Date Time Temp Pulse Resp B/P Pulse Ox O2 Delivery O2 Flow Rate FiO2 03/11/16 08:41 95 Nasal Cannula 2.00 03/11/16 06:00 64 03/11/16 04:00 57 03/11/16 04:00 98.4 67 21 108/61 98 03/11/16 02:00 58 03/11/16 00:00 98.2 67 14 101/65 99 03/11/16 00:00 63 03/10/16 22:50 100 Nasal Cannula 2.00 03/10/16 22:00 69 03/10/16 20:00 98.3 73 15 104/66 97 03/10/16 20:00 71 03/10/16 19:00 98 Nasal Cannula 4.00 03/10/16 16:00 83 03/10/16 16:00 97.8 83 18 81/53 99 03/10/16 12:00 81 03/10/16 12:00 98.4 81 16 94/54 99 03/10/16 10:00 89 I/O 03/10/16 03/10/16 03/10/16 03/11/16 03/11/16 03/11/16 07:00 15:00 23:00 07:00 15:00 23:00 Intake Total 73 ml 685 ml 480 ml Output Total 300 ml 600 ml 525 ml Balance -227 ml 85 ml -45 ml Intake Oral 0 ml 620 ml 480 ml IV Total 73 ml 65 ml Output Urine Total 300 ml 600 ml 525 ml # Voids 1 # Bowel Movements 0 Result Diagram: 03/11/16 0443 03/11/16 [address] Angiography 03/09/16 1106 Signed Impressions: Service Date/Time: Wednesday, March 09, 2016 11:29 - CONCLUSION: Saddle pulmonary embolism with extension into bilateral upper and lower lobe pulmonary arteries. Extensive emphysematous changes. Varying areas of alveolar minimal patchy consolidation and interstitial changes in lung bases. Report called to referring physician at 11: 44 AM. Yves Mccain MD Chest X-Ray 03/09/16 1011 Signed Impressions: Service Date/Time: Wednesday, March 09, 2016 10:40 - CONCLUSION: Minimal peripheral changes right base with mild hyperinflation. Landry Posadas MD FACR Objective Remarks General: No acute distress. Heart: Regular rate and rhythm. No murmur. Lungs: Clear to auscultation bilaterally. No wheezes, rales, or rhonchi. Breathing is nonlabored. Abdomen: Soft, nontender, nondistended. Extremities: No lower extremity edema. Psych: Alert and oriented. Procedures None Urinary Catheter: No Vascular Central Line Catheter: No A/P Problem List: (1) Saddle pulmonary embolus ICD Code: I26.92 Status: Acute (2) Pulmonary hypertension ICD Code: I27.2 Status: Acute (3) Dysfunction of right cardiac ventricle ICD Code: I51.9 Status: Acute (4) Anemia ICD Code: D64.9 Status: Acute Assessment and Plan 1. Massive saddle pulmonary embolus: Continue Lovenox 90 mg daily. Heparin drip discontinued. Continue supplemental oxygen as needed to keep sats greater than 92%. 2. Acute severe right heart dysfunction, acute pulmonary hypertension: Improving. Appreciate cardiology recommendations. Follow-up echocardiogram ordered for 03/13/16. 3. Anemia: Stable. Monitor H&H. Discharge Planning Transfer to medical/surgical floor when bed is available. Problem Qualifiers (1) Saddle pulmonary embolus: Qualified Code: I26.02 - Acute saddle pulmonary embolism with acute cor pulmonale Davon Krueger MD Mar 11, 2016 09:55
[2016-03-11] MEDS: PARoxetine HCL 20 MG TAB PO SCH (11:07)
[2016-03-11] MEDS: ENOXAPARIN SODIUM 100 MG/ML SYRINGE SQ SCH (11:07)
--- NOTE | 2016-03-11 16:04 | PD.CARD.PN ---
Subjective Subjective Remarks No chest pain, no shortness of breath Objective Medications Current Medications Medications (Trade) Dose Ordered Sig/Rupesh Route Start Time Stop Time Status Last Admin Magnesium Oxide 800 mg 800 mg UNSCH PRN PO 03/09/16 12:45 Magnesium Sulfate 4 gm/Sodium Chloride 100 ml @ 50 mls/hr UNSCH PRN IV 03/09/16 12:45 Magnesium Sulfate 2 gm/Sodium Chloride 100 ml @ 50 mls/hr UNSCH PRN IV 03/09/16 12:45 Potassium Chloride 100 ml @ 50 mls/hr Q2H PRN IV 03/09/16 12:45 Potassium Chloride 100 ml @ 50 mls/hr Q2H PRN IV 03/09/16 12:45 Potassium Chloride 100 ml @ 50 mls/hr Q2H PRN IV 03/09/16 12:45 (KCl 40 Meq Premix Inj) 100 ml @ 25 mls/hr UNSCH PRN IV 03/09/16 12:45 (KCl 40 Meq/30 ml Liq) 40 meq UNSCH PRN PO/TUBE 03/09/16 12:45 (KCl 40 Meq/30 ml Liq) 40 meq UNSCH PRN PO/TUBE 03/09/16 12:45 (K-Phos) 2,000 mg Q4H PRN PO 03/09/16 12:45 Potassium Phosphate 2000 mg 2,000 mg UNSCH PRN PO/TUBE 03/09/16 12:45 Potassium Phosphate 30 mmol/ Sodium Chloride 260 ml @ 42 mls/hr UNSCH PRN IV 03/09/16 12:45 (Sodium Phosphate Inj/NS 250 ml Inj) 250 ml @ 42 mls/hr UNSCH PRN IV 03/09/16 12:45 (NS Flush) 2 ml UNSCH PRN IV FLUSH 03/09/16 12:45 (NS Flush) 2 ml BID IV FLUSH 03/09/16 21:00 03/11/16 08:44 (Tylenol) 650 mg Q6H PRN PO 03/09/16 12:45 (Zofran Inj) 4 mg Q6H PRN IV 03/09/16 12:45 (Zita-Colace) 2 tab BID PO 03/09/16 21:00 03/10/16 09:46 Miscellaneous Information 1 Q361D XX 03/09/16 12:45 03/09/16 22:00 (Chlorhexidine 2% Cloth) 3 pack Taper DAILY@04 TOP 03/10/16 04:00 03/06/17 03:59 03/11/16 04:00 (Chlorhexidine 2% Cloth) 3 pack UNSCH PRN TOP 03/09/16 12:45 (Lovenox Inj) 90 mg Q24H SQ 03/10/16 11:00 03/11/16 11:07 (D50w (Vial) Inj) 25 ml UNSCH PRN IV PUSH 03/10/16 09:45 (Pepcid) 20 mg BID PO 03/10/16 21:00 03/11/16 08:44 (KlonoPIN) 0.25 mg BID PRN PO 03/10/16 18:15 03/10/16 20:19 (Remeron) 15 mg BID PO 03/10/16 21:00 03/11/16 08:44 (Pill Splitter) 1 ea UNSCH PRN OTHER 03/10/16 18:15 (Paxil) 30 mg DAILY PO 03/11/16 10:30 03/11/16 11:07 Vital Signs / I&O Vital Signs Date Time Temp Pulse Resp B/P Pulse Ox O2 Delivery O2 Flow Rate FiO2 03/11/16 12:00 77 03/11/16 12:00 98.6 67 18 112/60 100 03/11/16 08:41 95 Nasal Cannula 2.00 03/11/16 08:00 97.5 62 28 105/67 98 03/11/16 08:00 62 03/11/16 07:00 97 Nasal Cannula 4.00 03/11/16 06:00 64 03/11/16 04:00 57 03/11/16 04:00 98.4 67 21 108/61 98 03/11/16 02:00 58 03/11/16 00:00 98.2 67 14 101/65 99 03/11/16 00:00 63 03/10/16 22:50 100 Nasal Cannula 2.00 03/10/16 22:00 69 03/10/16 20:00 98.3 73 15 104/66 97 03/10/16 20:00 71 03/10/16 19:00 98 Nasal Cannula 4.00 I/O 03/10/16 03/10/16 03/10/16 03/11/1625/17 1/25/17 07:00 15:00 23:00 07:00 15:00 23:00 Intake Total 73 ml 685 ml 480 ml 280 ml Output Total 300 ml 600 ml 525 ml 400 ml Balance -227 ml 85 ml -45 ml -120 ml Intake Oral 0 ml 620 ml 480 ml 280 ml IV Total 73 ml 65 ml Output Urine Total 300 ml 600 ml 525 ml 400 ml # Voids 1 1 # Bowel Movements 0 Physical Exam GENERAL: NAD, AAOx3 SKIN: Warm and dry. HEAD: Atraumatic. Normocephalic. EYES: Pupils equal and round. No scleral icterus. No injection or drainage. ENT: No nasal bleeding or discharge. Mucous membranes pink and moist. NECK: Trachea midline. No JVD. CARDIOVASCULAR: Regular rate and rhythm. RESPIRATORY: No accessory muscle use. Decreased breath sounds bilaterally GASTROINTESTINAL: Abdomen soft, non-tender, nondistended. Hepatic and splenic margins not palpable. MUSCULOSKELETAL: Extremities without clubbing, cyanosis, or edema. No obvious deformities. NEUROLOGICAL: Awake and alert. No obvious cranial nerve deficits. Motor grossly within normal limits. Five out of 5 muscle strength in the arms and legs. Normal speech. PSYCHIATRIC: Appropriate mood and affect; insight and judgment normal. Laboratory Laboratory Tests Test 03/11/16 04:43 White Blood Count 9.6 TH/MM3 Red Blood Count 3.56 MIL/MM3 Hemoglobin 12.0 GM/DL Hematocrit 35.1 % Mean Corpuscular Volume 98.7 FL Mean Corpuscular Hemoglobin 33.7 PG Mean Corpuscular Hemoglobin 34.1 % Concent Red Cell Distribution Width 13.3 % Platelet Count 272 TH/MM3 Mean Platelet Volume 8.0 FL Sodium Level 142 MEQ/L Potassium Level 3.8 MEQ/L Chloride Level 108 MEQ/L Carbon Dioxide Level 28.8 MEQ/L Anion Gap 5 MEQ/L Blood Urea Nitrogen 19 MG/DL Creatinine 0.83 MG/DL Estimat Glomerular Filtration 95 ML/MIN Rate Random Glucose 74 MG/DL Calcium Level 8.7 MG/DL Assessment and Plan Problem List: (1) Saddle pulmonary embolus (2) NSTEMI (non-ST elevated myocardial infarction) Assessment and Plan 1) Doing well, agree with Lovenox per Dr. Crocker, see if case management can help with getting 6 months of NOAC 2) Follow up echo on Wednesday 3) Needs social services technician/case management to help with a meeting he has for help with housing and rescheduling 4) Outpatient work up for cancer screening, prostate/colon, etc Problem Qualifiers (1) Saddle pulmonary embolus: Qualified Code: I26.02 - Acute saddle pulmonary embolism with acute cor pulmonale Cosme Rosario DO Mar 11, 2016 16:04
[2016-03-12] VITALS (7 sets, daily range): BP systolic 95–131; BP diastolic 59–75; PULSE 49–90; RESP 18–24; TEMP 97.5–98.3; O2SAT 96–100
[2016-03-12] MEDS: INSULIN NovoLIN REGULAR SUPPLEMENTAL SCALE SQ SCH ×5 (02:58→21:00)
[2016-03-12 06:07] LABS: HEMATOCRIT 32.2 % (39.0-51.0); MEAN CELL VOLUME 99.4 FL (80.0-100.0); MEAN CORPUSCULAR HEMOGLOBIN 33.3 PG (27.0-34.0); MEAN CORPUSCULAR HGB CONC 33.5 % (32.0-36.0); PLATELET COUNT 299 TH/MM3 (150-450); RED BLOOD COUNT 3.24 MIL/MM3 (4.50-5.90); RED CELL DISTRIBUTION WIDTH 13.5 % (11.6-17.2); REVIEW FLAG FINAL; WHITE BLOOD COUNT 7.8 TH/MM3 (4.0-11.0)
[2016-03-12 06:38] LABS: BICARBONATE 30.4 MEQ/L (21.0-32.0); POTASSIUM 3.6 MEQ/L (3.5-5.1)
[2016-03-12] MEDS: DOCUSATE SODIUM 50 MG/SENNA 8.6 MG TAB PO SCH ×2 (09:00→21:32)
--- NOTE | 2016-03-12 09:08 | PD.CARD.PN ---
Subjective Subjective Remarks No chest pain, no shortness of breath, off oxygen, up and ambulating Objective Medications Current Medications Medications (Trade) Dose Ordered Sig/Rupesh Route Start Time Stop Time Status Last Admin Magnesium Oxide 800 mg 800 mg UNSCH PRN PO 03/09/16 12:45 Magnesium Sulfate 4 gm/Sodium Chloride 100 ml @ 50 mls/hr UNSCH PRN IV 03/09/16 12:45 Magnesium Sulfate 2 gm/Sodium Chloride 100 ml @ 50 mls/hr UNSCH PRN IV 03/09/16 12:45 Potassium Chloride 100 ml @ 50 mls/hr Q2H PRN IV 03/09/16 12:45 Potassium Chloride 100 ml @ 50 mls/hr Q2H PRN IV 03/09/16 12:45 Potassium Chloride 100 ml @ 50 mls/hr Q2H PRN IV 03/09/16 12:45 (KCl 40 Meq Premix Inj) 100 ml @ 25 mls/hr UNSCH PRN IV 03/09/16 12:45 (KCl 40 Meq/30 ml Liq) 40 meq UNSCH PRN PO/TUBE 03/09/16 12:45 (KCl 40 Meq/30 ml Liq) 40 meq UNSCH PRN PO/TUBE 03/09/16 12:45 (K-Phos) 2,000 mg Q4H PRN PO 03/09/16 12:45 Potassium Phosphate 2000 mg 2,000 mg UNSCH PRN PO/TUBE 03/09/16 12:45 Potassium Phosphate 30 mmol/ Sodium Chloride 260 ml @ 42 mls/hr UNSCH PRN IV 03/09/16 12:45 (Sodium Phosphate Inj/NS 250 ml Inj) 250 ml @ 42 mls/hr UNSCH PRN IV 03/09/16 12:45 (NS Flush) 2 ml UNSCH PRN IV FLUSH 03/09/16 12:45 (NS Flush) 2 ml BID IV FLUSH 03/09/16 21:00 03/11/16 19:43 (Tylenol) 650 mg Q6H PRN PO 03/09/16 12:45 (Zofran Inj) 4 mg Q6H PRN IV 03/09/16 12:45 (Zita-Colace) 2 tab BID PO 03/09/16 21:00 03/11/16 19:52 Miscellaneous Information 1 Q361D XX 03/09/16 12:45 1/23/17 22:00 (Chlorhexidine 2% Cloth) 3 pack Taper DAILY@04 TOP 03/10/16 04:00 03/06/17 03:59 03/11/16 19:43 (Chlorhexidine 2% Cloth) 3 pack UNSCH PRN TOP 03/09/16 12:45 (Lovenox Inj) 90 mg Q24H SQ 03/10/16 11:00 03/11/16 11:07 (D50w (Vial) Inj) 25 ml UNSCH PRN IV PUSH 03/10/16 09:45 (Pepcid) 20 mg BID PO 03/10/16 21:00 03/11/16 19:52 (KlonoPIN) 0.25 mg BID PRN PO 03/10/16 18:15 03/10/16 20:19 (Remeron) 15 mg BID PO 03/10/16 21:00 03/11/16 19:52 (Pill Splitter) 1 ea UNSCH PRN OTHER 03/10/16 18:15 (Paxil) 30 mg DAILY PO 03/11/16 10:30 03/11/16 11:07 Vital Signs / I&O Vital Signs Date Time Temp Pulse Resp B/P Pulse Ox O2 Delivery O2 Flow Rate FiO2 03/12/16 08:00 98.1 68 18 129/68 98 03/12/16 08:00 68 03/12/16 04:00 97.9 49 24 131/70 98 03/12/16 04:00 49 03/12/16 00:00 59 03/12/16 00:00 98.3 59 24 112/75 98 03/11/16 20:00 73 03/11/16 20:00 98.5 71 24 96/66 98 03/11/16 20:00 98 Nasal Cannula 4.00 03/11/16 19:22 99 Nasal Cannula 2.00 03/11/16 16:00 76 03/11/16 16:00 97.8 76 24 89/57 98 03/11/16 12:00 77 03/11/16 12:00 98.6 67 18 112/60 100 I/O 03/11/16 03/11/16 03/11/16 03/12/16 03/12/16 03/12/16 07:00 15:00 23:00 07:00 15:00 23:00 Intake Total 480 ml 280 ml 350 ml 350 ml Output Total 525 ml 400 ml 425 ml 225 ml Balance -45 ml -120 ml -75 ml 125 ml Intake Oral 480 ml 280 ml 350 ml 350 ml Output Urine Total 525 ml 400 ml 425 ml 225 ml # Voids 1 Physical Exam GENERAL: NAD, AAOx3 SKIN: Warm and dry. HEAD: Atraumatic. Normocephalic. EYES: Pupils equal and round. No scleral icterus. No injection or drainage. ENT: No nasal bleeding or discharge. Mucous membranes pink and moist. NECK: Trachea midline. No JVD. CARDIOVASCULAR: Regular rate and rhythm. RESPIRATORY: No accessory muscle use. Decreased breath sounds bilaterally GASTROINTESTINAL: Abdomen soft, non-tender, nondistended. Hepatic and splenic margins not palpable. MUSCULOSKELETAL: Extremities without clubbing, cyanosis, or edema. No obvious deformities. NEUROLOGICAL: Awake and alert. No obvious cranial nerve deficits. Motor grossly within normal limits. Five out of 5 muscle strength in the arms and legs. Normal speech. PSYCHIATRIC: Appropriate mood and affect; insight and judgment normal. Laboratory Laboratory Tests Test 03/12/16 04:47 White Blood Count 7.8 TH/MM3 Red Blood Count 3.24 MIL/MM3 Hemoglobin 10.8 GM/DL Hematocrit 32.2 % Mean Corpuscular Volume 99.4 FL Mean Corpuscular Hemoglobin 33.3 PG Mean Corpuscular Hemoglobin 33.5 % Concent Red Cell Distribution Width 13.5 % Platelet Count 299 TH/MM3 Mean Platelet Volume 8.1 FL Sodium Level 142 MEQ/L Potassium Level 3.6 MEQ/L Chloride Level 107 MEQ/L Carbon Dioxide Level 30.4 MEQ/L Anion Gap 5 MEQ/L Blood Urea Nitrogen 19 MG/DL Creatinine 0.75 MG/DL Estimat Glomerular Filtration 107 ML/MIN Rate Random Glucose 70 MG/DL Calcium Level 8.0 MG/DL Assessment and Plan Problem List: (1) Saddle pulmonary embolus (2) NSTEMI (non-ST elevated myocardial infarction) Assessment and Plan 1) Doing well, agree with Lovenox per Dr. Crocker, see if case management can help with getting 6 months of NOAC 2) Follow up echo on Wednesday 3) Needs manager social responsibility/case management to help with a meeting he had today for help with housing and rescheduling 4) Outpatient work up for cancer screening, prostate/colon, etc, spoke to Vinh about finding a primary to start this 5) Will see PRN, please call with questions Problem Qualifiers (1) Saddle pulmonary embolus: Qualified Code: I26.02 - Acute saddle pulmonary embolism with acute cor pulmonale Cosme Rosario DO Mar 12, 2016 09:08
--- NOTE | 2016-03-12 09:15 | HHI.PR ---
Subjective Remarks Follow up PE. The patient states that he feels much better. He is ambulating in the room without difficulty. No chest pain or dyspnea. Does have occasional chest tightness, but none currently. Objective Vitals Vital Signs Date Time Temp Pulse Resp B/P Pulse Ox O2 Delivery O2 Flow Rate FiO2 03/12/16 08:00 98.1 68 18 129/68 98 03/12/16 08:00 68 03/12/16 04:00 97.9 49 24 131/70 98 03/12/16 04:00 49 03/12/16 00:00 59 03/12/16 00:00 98.3 59 24 112/75 98 03/11/16 20:00 73 03/11/16 20:00 98.5 71 24 96/66 98 03/11/16 20:00 98 Nasal Cannula 4.00 03/11/16 19:22 99 Nasal Cannula 2.00 03/11/16 16:00 76 03/11/16 16:00 97.8 76 24 89/57 98 03/11/16 12:00 77 03/11/16 12:00 98.6 67 18 112/60 100 I/O 03/11/16 03/11/16 03/11/16 03/12/16 03/12/16 03/12/16 07:00 15:00 23:00 07:00 15:00 23:00 Intake Total 480 ml 280 ml 350 ml 350 ml Output Total 525 ml 400 ml 425 ml 225 ml Balance -45 ml -120 ml -75 ml 125 ml Intake Oral 480 ml 280 ml 350 ml 350 ml Output Urine Total 525 ml 400 ml 425 ml 225 ml # Voids 1 Result Diagram: 03/12/16 0447 03/12/16 [address] Angiography 03/09/16 1106 Signed Impressions: Service Date/Time: Wednesday, March 09, 2016 11:29 - CONCLUSION: Saddle pulmonary embolism with extension into bilateral upper and lower lobe pulmonary arteries. Extensive emphysematous changes. Varying areas of alveolar minimal patchy consolidation and interstitial changes in lung bases. Report called to referring physician at 11: 44 AM. Yves Mccain MD Chest X-Ray 03/09/16 1011 Signed Impressions: Service Date/Time: Wednesday, March 09, 2016 10:40 - CONCLUSION: Minimal peripheral changes right base with mild hyperinflation. Landry Posadas MD FACR Objective Remarks General: No acute distress. Heart: Regular rate and rhythm. No murmur. Lungs: Clear to auscultation bilaterally. No wheezes, rales, or rhonchi. Breathing is nonlabored. Abdomen: Soft, nontender, nondistended. Extremities: No lower extremity edema. Psych: Alert and oriented. Procedures None Urinary Catheter: No Vascular Central Line Catheter: No A/P Problem List: (1) Saddle pulmonary embolus ICD Code: I26.92 Status: Acute (2) Pulmonary hypertension ICD Code: I27.2 Status: Acute (3) Dysfunction of right cardiac ventricle ICD Code: I51.9 Status: Acute (4) Anemia ICD Code: D64.9 Status: Acute Assessment and Plan 1. Massive saddle pulmonary embolus: Continue Lovenox 90 mg daily. Heparin drip discontinued. Continue supplemental oxygen as needed to keep sats greater than 92%. 2. Acute severe right heart dysfunction, acute pulmonary hypertension: Improving. Appreciate cardiology recommendations. Follow-up echocardiogram ordered for tomorrow. 3. Anemia: Monitor H&H. 4. Follow up as outpatient with PCP for cancer screening. This was discussed at length with the patient today. Discharge Planning Transfer to medical/surgical floor when bed is available. Problem Qualifiers (1) Saddle pulmonary embolus: Qualified Code: I26.02 - Acute saddle pulmonary embolism with acute cor pulmonale Davon Krueger MD Mar 12, 2016 09:15
[2016-03-12] MEDS: MIRTAZAPINE 15 MG TAB PO SCH ×2 (10:24→21:32)
[2016-03-12] MEDS: PARoxetine HCL 20 MG TAB PO SCH (10:24)
[2016-03-12] MEDS: ENOXAPARIN SODIUM 100 MG/ML SYRINGE SQ SCH (10:24)
[2016-03-12] MEDS: FAMOTIDINE 20 MG TAB PO SCH ×2 (10:24→21:32)
[2016-03-12] MEDS: clonazePAM 0.5 MG TAB PO PRN ×2 (10:24→21:47)
[2016-03-12] MEDS: SODIUM CHLORIDE 0.9% FLUSH 5 ML FLUSH IV FLUSH SCH ×2 (10:25→21:32)
[2016-03-13] VITALS: BP 113/72; PULSE 53; RESP 18; TEMP 96.1; O2SAT 98
[2016-03-13] MEDS: INSULIN NovoLIN REGULAR SUPPLEMENTAL SCALE SQ SCH ×2 (03:00→06:36)
[2016-03-13] MEDS: CHLORHEXIDINE GLUCONATE 2 % 1 PACK (2 CLOTHS) TOP SCH (03:59)
[2016-03-13 04:00] VITALS: BP 112/69; PULSE 69; RESP 18; TEMP 97.3; O2SAT 97
[2016-03-13 05:55] LABS: POTASSIUM 4.4 MEQ/L (3.5-5.1)
[2016-03-13 06:02] LABS: HEMATOCRIT 34.7 % (39.0-51.0); MEAN CELL VOLUME 99.7 FL (80.0-100.0); MEAN CORPUSCULAR HEMOGLOBIN 34.5 PG (27.0-34.0); MEAN CORPUSCULAR HGB CONC 34.6 % (32.0-36.0); PLATELET COUNT 301 TH/MM3 (150-450); RED BLOOD COUNT 3.48 MIL/MM3 (4.50-5.90); RED CELL DISTRIBUTION WIDTH 13.8 % (11.6-17.2); REVIEW FLAG FINAL; WHITE BLOOD COUNT 7.2 TH/MM3 (4.0-11.0)
[2016-03-13 08:00] VITALS: BP 115/66; PULSE 77; RESP 18; TEMP 97.7; O2SAT 96
[2016-03-13] MEDS: PARoxetine HCL 20 MG TAB PO SCH (08:22)
[2016-03-13] MEDS: DOCUSATE SODIUM 50 MG/SENNA 8.6 MG TAB PO SCH (08:25)
[2016-03-13] MEDS: FAMOTIDINE 20 MG TAB PO SCH (08:25)
[2016-03-13] MEDS: MIRTAZAPINE 15 MG TAB PO SCH (08:26)
[2016-03-13] MEDS: SODIUM CHLORIDE 0.9% FLUSH 5 ML FLUSH IV FLUSH SCH (08:39)
[2016-03-13 09:12] VITALS: O2SAT 96
--- NOTE | 2016-03-13 10:56 | HHI.PR ---
Subjective Remarks Follow up PE. Denies chest pain, dyspnea. He states that he feels a little anxious about his home situation, which is not fully settled yet. He is waiting to hear back from his certified social workers in health care regarding his new apartment. Objective Vitals Vital Signs Date Time Temp Pulse Resp B/P Pulse Ox O2 Delivery O2 Flow Rate FiO2 03/13/16 09:12 96 03/13/16 08:45 96 Room Air 03/13/16 08:00 97.7 77 18 115/66 96 03/13/16 04:00 97.3 69 18 112/69 97 03/13/16 00:00 96.1 53 18 113/72 98 03/12/16 20:00 65 03/12/16 20:00 97.5 69 18 95/59 96 03/12/16 19:45 Room Air 03/12/16 16:30 97.8 76 18 109/65 100 03/12/16 12:00 98.2 90 22 114/71 99 03/12/16 12:00 88 I/O 03/12/16 03/12/16 03/12/16 03/13/16 03/13/16 03/13/16 07:00 15:00 23:00 07:00 15:00 23:00 Intake Total 350 ml 420 ml 720 ml 480 ml Output Total 225 ml 500 ml Balance 125 ml -80 ml 720 ml 480 ml Intake Oral 350 ml 420 ml 720 ml 480 ml Output Urine Total 225 ml 500 ml # Voids 1 1 # Bowel Movements 1 Result Diagram: 03/13/16 0450 03/13/16 [address] Angiography 03/09/16 1106 Signed Impressions: Service Date/Time: Wednesday, March 09, 2016 11:29 - CONCLUSION: Saddle pulmonary embolism with extension into bilateral upper and lower lobe pulmonary arteries. Extensive emphysematous changes. Varying areas of alveolar minimal patchy consolidation and interstitial changes in lung bases. Report called to referring physician at 11: 44 AM. Yves Mccain MD Chest X-Ray 03/09/16 1011 Signed Impressions: Service Date/Time: Wednesday, March 09, 2016 10:40 - CONCLUSION: Minimal peripheral changes right base with mild hyperinflation. Landry Posadas MD FACR Objective Remarks General: No acute distress. Heart: Regular rate and rhythm. No murmur. Lungs: Clear to auscultation bilaterally. No wheezes, rales, or rhonchi. Breathing is nonlabored. Abdomen: Soft, nontender, nondistended. Extremities: No lower extremity edema. Psych: Alert and oriented. Procedures None Urinary Catheter: No Vascular Central Line Catheter: No A/P Problem List: (1) Saddle pulmonary embolus ICD Code: I26.92 Status: Acute (2) Pulmonary hypertension ICD Code: I27.2 Status: Acute (3) Dysfunction of right cardiac ventricle ICD Code: I51.9 Status: Acute (4) Anemia ICD Code: D64.9 Status: Acute Assessment and Plan 1. Massive saddle pulmonary embolus: Continue Lovenox 90 mg daily. Heparin drip discontinued. Continue supplemental oxygen as needed to keep sats greater than 92%. Will switch to Xarelto at discharge. 2. Acute severe right heart dysfunction, acute pulmonary hypertension: Improving. Appreciate cardiology recommendations. Follow-up echocardiogram ordered for today. Discussed with Dr. Rosario. 3. Anemia: Monitor H&H. 4. Follow up as outpatient with PCP for cancer screening. This was discussed at length with the patient. We discussed the importance of ruling out cancer as a cause of blood clots. Discharge Planning Possible discharge home today pending repeat echocardiogram. Problem Qualifiers (1) Saddle pulmonary embolus: Qualified Code: I26.02 - Acute saddle pulmonary embolism with acute cor pulmonale Davon Krueger MD Mar 13, 2016 10:56
[2016-03-13] MEDS: ENOXAPARIN SODIUM 100 MG/ML SYRINGE SQ SCH (11:10)
[2016-03-13] MEDS: clonazePAM 0.5 MG TAB PO PRN (11:10)
[2016-03-13] MEDS ORDERED: XARE15TA PO (11:34)
--- NOTE | 2016-03-13 11:36 | HHI.DCPOC ---
Discharge Care Plan Diagnosis: (1) NSTEMI (non-ST elevated myocardial infarction) (2) Saddle pulmonary embolus (3) Pulmonary hypertension (4) Anemia (5) Dysfunction of right cardiac ventricle Goals to Promote Your Health * To prevent worsening of your condition and complications * To maintain your health at the optimal level Directions to Meet Your Goals Take your medications as prescribed Follow your dietary instruction Follow activity as directed Keep your appointments as scheduled Take your immunizations and boosters as scheduled If your symptoms worsen call your PCP, if no PCP go to Urgent Care Center or Emergency Room Smoking is Dangerous to Your Health. Avoid second hand smoke Call the 24-hour hour crisis hotline for domestic abuse at Davon Krueger MD Mar 13, 2016 11:36
[2016-03-13 12:00] VITALS: BP 105/70; PULSE 81; RESP 18; TEMP 98; O2SAT 98
[2016-03-13 12:21] VITALS: PULSE 65
--- NOTE | 2016-03-13 14:08 | ECHLIM ---
Study Study Date:03/13/2016 STUDY CONCLUSIONS SUMMARY - Left ventricle: The cavity size was normal. Wall thickness was normal. Systolic function was normal. The estimated ejection fraction was 65%. Wall motion was normal; there were no regional wall motion abnormalities. - Right ventricle: The cavity size and functionwas normal. Wall thickness was normal. If LV function is below 40, please consider prescribing an ACEI or ARB or document rationale for non-use. PROCEDURE DATA STUDY STATUS: Elective. Procedure: Transthoracic echocardiography. Image quality was good. Scanning was performed from the parasternal, apical, and subcostal acoustic windows. Study completion: The patient tolerated the procedure well. Transthoracic echocardiography. M-mode, complete 2D, complete spectral Doppler, and color Doppler. Height: Height: 71in. Weight: Weight: 135.7lb. Body mass index: BMI: 19kg/m^2. Body surface area: BSA: 1.79m^2. Patient status: Inpatient. CARDIAC ANATOMY LEFT VENTRICLE: The cavity size was normal. Wall thickness was normal. Systolic function was normal. The estimated ejection fraction was 65%. Wall motion was normal; there were no regional wall motion abnormalities. AORTIC VALVE: Trileaflet; normal thickness leaflets. Doppler: Transvalvular velocity was within the normal range. There was no stenosis. No regurgitation. Valve area: 2.35cm^2(VTI). Indexed valve area: 1.31cm^2/m^2 (VTI). Valve area: 2.73cm^2 (Vmax). Indexed valve area: 1.53cm^2/m^2 (Vmax). Mean gradient: 5mm Hg (S). AORTA: Aortic root: The aortic root was normal in size. MITRAL VALVE: Structurally normal valve. Doppler: Transvalvular velocity was within the normal range. There was no evidence for stenosis. Trace regurgitation. LEFT ATRIUM: The atrium was normal in size. RIGHT VENTRICLE: The cavity size and functionwas normal. Wall thickness was normal. PULMONIC VALVE: Doppler: Transvalvular velocity was within the normal range. There was no evidence for stenosis. No regurgitation. TRICUSPID VALVE: Structurally normal valve. Doppler: Transvalvular velocity was within the normal range. Trace regurgitation. PULMONARY ARTERY: The main pulmonary artery was normal-sized. Systolic pressure was within the normal range. RIGHT ATRIUM: The atrium was normal in size. PERICARDIUM: There was no pericardial effusion. SYSTEMIC VEINS: Inferior vena cava: The vessel was normal in size. Patient weight: 135.7lb _Ejection fraction:_ 65-75% _Fractional shortening:_ 32% up to 5Kg 5-11.5Kg 11.6-22.9Kg 23-45Kg 45-57Kg Aortic Root 7-13 <17 13-22 17-27 17-27 LA diam 6-13 <23 24-38 33-47 37-40 RVID 10-17 7-15 7-15 7-18 8-17 LVIDd 12-22 <32 24-38 33-47 37-40 LVPW 2-4 3-6 5-7 6-8 7-8 IVS 2-4 3-6 5-7 6-8 7-8 BASIC MEASUREMENTS ADULT NORMAL Left ventricle LV internal dimension, ED, chordal *40.9 mm 43-52 level, PLAX LV internal dimension, ES, chordal 24.7 mm 23-38 level, PLAX Fractional shortening, chordal level, 40 % >29 PLAX LV posterior wall thickness, ED 7.97 mm IVS/LVPW ratio, ED 0.99 <1.3 Ventricular septum Septal thickness, ED 7.92 mm Aortic valve Leaflet separation 22 mm 15-26 Aorta Root diameter, ED 31 mm Left atrium Anterior-posterior dimension 27 mm Anterior-posterior dimension index 1.51 cm/m^2 <2.2 BASIC MEASUREMENTS ADULT NORMAL Aortic valve Leaflet separation 22 mm 15-26 DOPPLER MEASUREMENTS ADULT NORMAL Aortic valve Peak velocity, S 150 cm/s Mean velocity, S 97.8 cm/s VTI, S 24.7 cm Mean gradient, S 5 mm Hg Valve area, VTI 2.35 cm^2 Valve area index, VTI 1.31 cm^2/m^2 Valve area, Vmax 2.73 cm^2 Valve area index, Vmax 1.53 cm^2/m^2 Mitral valve Peak E-wave velocity 54.8 cm/s Peak A-wave velocity 69.1 cm/s Peak E/A ratio 0.8 Systemic veins Estimated CVP 10 mm Hg Pulmonic valve Peak velocity, S 60.2 cm/s LEGEND: Mean values are shown as u=mean value. Asterisk (*) nathan values outside specified normal range. Prepared and signed by Ayden Schumacher [id number]
--- NOTE | 2016-03-13 14:24 | HHI.DS ---
Discharge Summary Admission Date Mar 09, 2016 at 12:07 Discharge Date: Mar 13, 2016 Admitting Diagnosis Saddle Pulmonary embolism, Sepsis (1) Saddle pulmonary embolus ICD Code: I26.92 (2) Pulmonary hypertension ICD Code: I27.2 (3) Dysfunction of right cardiac ventricle ICD Code: I51.9 (4) Anemia ICD Code: D64.9 Procedures None Brief History - From Admission This is a 54-year-old male with a long past history of smoking who presents to the emergency department complaining of chest pain since Wednesday morning. Patient initially was mildly hypotensive. Patient endorsed shortness of breath nausea and vomiting. Initially there were some cconcern over st elevations in a STEMI alert was called. Dr. Rosario evaluated the patient and ordered a stat echocardiogram which demonstrated McConnel's sign, RV strain, RV dilation, severe RV dysfunction. Laboratory data is pertinent for a mildly elevated BNP and mildly elevated troponin. This prompted a stat CT pulmonary angiogram which demonstrated large saddle embolus with extension into the subsegmental pulmonary arteries. Critical care medicine is consulted to evaluate and manage his massive pulmonary embolus with evidence of RV strain. He was also initially hypotensive with systolic in 80s and given a 1 L fluid bolus. On my evaluation is slightly more stable with systolic 91. Of note, he is recently homeless and for the last few weeks he is lives out of his car and he spent long periods of time sitting and sleeping in his car in smaller spaces and relatively immobile. CBC/BMP: 03/13/16 0450 03/13/16 0450 Significant Findings Laboratory Tests Test 03/11/16 03/12/16 03/13/16 04:43 04:47 04:50 Red Blood Count 3.56 MIL/MM3 3.24 MIL/MM3 3.48 MIL/MM3 (4.50-5.90) (4.50-5.90) (4.50-5.90) Hemoglobin 12.0 GM/DL 10.8 GM/DL 12.0 GM/DL (13.0-17.0) (13.0-17.0) (13.0-17.0) Hematocrit 35.1 % 32.2 % 34.7 % (39.0-51.0) (39.0-51.0) (39.0-51.0) Chloride Level 108 MEQ/L 108 MEQ/L (98-107) (98-107) Blood Urea Nitrogen 19 MG/DL (7-18) 19 MG/DL (7-18) Random Glucose 70 MG/DL (74-106) Calcium Level 8.0 MG/DL 8.4 MG/DL (8.5-10.1) (8.5-10.1) Mean Corpuscular Hemoglobin 34.5 PG (27.0-34.0) Anion Gap 3 MEQ/L (5-15) Imaging Last Impressions CT Angiography 03/09/16 1106 Signed Impressions: Service Date/Time: Wednesday, March 09, 2016 11:29 - CONCLUSION: Saddle pulmonary embolism with extension into bilateral upper and lower lobe pulmonary arteries. Extensive emphysematous changes. Varying areas of alveolar minimal patchy consolidation and interstitial changes in lung bases. Report called to referring physician at 11: 44 AM. Yves Mccain MD Chest X-Ray 03/09/16 1011 Signed Impressions: Service Date/Time: Wednesday, March 09, 2016 10:40 - CONCLUSION: Minimal peripheral changes right base with mild hyperinflation. Landry Posadas MD FACR PE at Discharge General: No acute distress. Heart: Regular rate and rhythm. No murmur. Lungs: Clear to auscultation bilaterally. No wheezes, rales, or rhonchi. Breathing is nonlabored. Abdomen: Soft, nontender, nondistended. Extremities: No lower extremity edema. Psych: Alert and oriented. Hospital Course Patient was admitted to the intensive care unit on the critical care service for massive saddle pulmonary embolus. Cardiology was consulted for evaluation of acute right heart dysfunction and acute pulmonary hypertension. He was started on anticoagulation with Lovenox. The patient improved clinically throughout the hospitalization. He was weaned off oxygen and tolerated room air. Repeat echocardiogram showed normal right ventricular function. The patient was cleared for discharge by cardiology. He was felt to be stable for discharge with outpatient follow-up. He was advised to follow-up with a primary care physician for cancer screening. This was discussed with him at length and he expressed understanding. Pt Condition on Discharge: Stable Discharge Disposition: Discharge Home Discharge Time: > 30 minutes Discharge Instructions DIET: Follow Instructions for: Heart Healthy Diet Activities you can perform: Regular-No Restrictions Follow up Referrals: Cardiology - 2 Weeks with Cosme Rosario DO PCP Follow-up - 1 Week New Medications: Rivaroxaban (Xarelto) 15 Mg Tab 15 MG PO BID 15mg BID x 21 days, then 20mg PO daily. Blood Clot Prevention #42 Ref 0 TAB Continued Medications: Albuterol 6.7 GM Inh (Proventil Hfa 6.7 GM Inh) 90 Mcg/Act Aer 2 PUFF INH Q6H PRN SHORTNESS OF BREATH #1 Ref 0 INHALER Albuterol Neb (Albuterol Neb) 2.5 Mg/3 Ml Neb 2.5 MG NEB Q4HR NEB PRN SHORTNESS OF BREATH #60 Ref 0 NEBULE Cholecalciferol (Vitamin D3) 1,000 Unit Cap 1000 UNITS PO DAILY Nutritional Supplement #1 Ref 0 BOTTLE Clonazepam (Clonazepam) 0.5 Mg Tab 0.5 MG PO TID PRN ANXIETY #90 Ref 0 TAB Gabapentin (Gabapentin) 600 Mg Tab 600 MG PO QID #60 Ref 0 TAB Mirtazapine (Mirtazapine) 15 Mg Tab 15 MG PO BID Depression Control #30 Ref 0 TAB Paroxetine (Paroxetine) 30 Mg Tab 30 MG PO DAILY #30 Ref 0 TAB Prazosin (Prazosin) 2 Mg Cap 2 MG PO HS Blood Pressure Management #60 Ref 0 CAP Ranitidine (Ranitidine) 150 Mg Tab 150 MG PO BID Heartburn Management #60 Ref 0 TAB Davon Krueger MD Mar 13, 2016 14:24
--- NOTE | 2016-03-13 16:57 | PD.CARD.PN ---
Subjective Subjective Remarks No chest pain, no shortness of breath, ambulating Objective Medications Current Medications Aspirin (Aspirin Chew) 162 mg ONCE ONCE PO Last administered on 03/09/16 10: 39; Start 03/09/16 at 10:15; Stop 03/09/16 at 10:16; Status DC IV Flush (NS Flush) 2 ml UNSCH PRN IVF FLUSH AFTER USING IV ACCESS; Start 03/09 at 10:15; Stop 03/09/16 at 13:19; Status DC Nitroglycerin (Nitrostat Sl) 0.4 mg Q5M SL Last administered on 03/09/16 10:53 ; Start 03/09/16 at 10:15; Stop 03/09/16 at 10:26; Status DC Methylprednisolone Sodium Succinate (SoluMEDROL INJ) 125 mg ONCE ONCE IVP Last administered on 03/09/16 10:39; Start 03/09/16 at 10:15; Stop 03/09/16 at 10:16; Status DC Albuterol/ Ipratropium (Duoneb Neb) 1 ampule Q15M INH Last administered on 03/09 10:28; Start 03/09/16 at 10:15; Stop 03/09/16 at 10:46; Status DC Ondansetron HCl 4 mg 4 mg ONCE ONCE IVP Last administered on 03/09/16 10:39; Start 03/09/16 at 10:15; Stop 03/09/16 at 10:16; Status DC Sodium Chloride 1,000 ml @ 1,000 mls/hr Q1H IV Last administered on 03/09/16 10:38; Start 03/09/16 at 10:13; Stop 03/09/16 at 11:12; Status DC Vancomycin HCl 1000 mg/Sodium Chloride 250 ml @ 250 mls/hr ONCE STAT IV Last administered on 03/09/16 11:44; Start 03/09/16 at 10:56; Stop 03/09/16 at 11:55 ; Status DC Piperacillin Sod/ Tazobactam Sod 100 ml @ 200 mls/hr ONCE STAT IV Last administered on 03/09/16 11:07; Start 03/09/16 at 10:56; Stop 03/09/16 at 11:26 ; Status DC Sodium Chloride 1,000 ml @ 999 mls/hr BOLUS ONCE IV Last administered on 03/09 11:06; Start 03/09/16 at 11:00; Stop 03/09/16 at 11:22; Status DC Sodium Chloride (NS 1000 ml Inj) 1,000 ml @ 999 mls/hr BOLUS ONCE IV Last administered on 03/09/16 11:06; Start 03/09/16 at 11:00; Stop 03/09/16 at 12:00 ; Status DC Acetaminophen 650 mg 650 mg ONCE ONCE PO Last administered on 03/09/16 11:08 ; Start 03/09/16 at 11:00; Stop 03/09/16 at 11:01; Status DC Sodium Chloride (NS 1000 ml Inj) 1,000 ml @ 999 mls/hr BOLUS ONCE IV ; Start 03/09/16 at 11:15; Stop 03/09/16 at 12:15; Status DC Heparin Sodium (Porcine) (Heparin Inj) 4,650 units ONCE ONCE IV Last administered on 03/09/16 11:50; Start 03/09/16 at 11:15; Stop 03/09/16 at 11:16 ; Status DC Heparin Sodium (Porcine) (Heparin Inj) 5,000 units UNSCH PRN IV APTT LESS THAN 25; Start 03/09/16 at 17:15; Stop 03/10/16 at 09:53; Status DC Heparin Sodium (Porcine) 2500 units 2,500 units UNSCH PRN IV APTT 25 TO 39; Start 03/09/16 at 17:15; Stop 03/10/16 at 09:53; Status DC Heparin Sodium/ Dextrose (Heparin-D5W Inj) 250 ml @ 0 mls/hr TITRATE IV Last administered on 03/09/16 23:04; Start 03/09/16 at 11:15; Stop 03/10/16 at 09:53 ; Status DC Iohexol 70 ml 70 ml STK-MED ONCE IV Last administered on 03/09/16 11:46; Start 03/09/16 at 11:46; Stop 03/09/16 at 11:47; Status DC Alteplase, Recombinant/ Sterile Water (Activase Inj/ Sterile Water For Inj) 100 ml @ 0 mls/hr ONCE ONCE IV Last administered on 03/09/16 13:35; Start at 13:00; Stop 03/09/16 at 13:18; Status DC Miscellaneous Information Parenteral anticoagulation may be start... UNSCH PRN OTHER SEE DOSE INSTRUCTIONS; Start 03/09/16 at 13:00; Stop 03/10/16 at 12:59; Status DC Magnesium Oxide 800 mg 800 mg UNSCH PRN PO For Magnesium 1.2 - 1.6 mg/dL; Start 03/09/16 at 12:45; Stop 03/12/16 at 17:04; Status DC Magnesium Sulfate 4 gm/Sodium Chloride 100 ml @ 50 mls/hr UNSCH PRN IV For Magnesium 0.9 - 1.1 mg/dL; Start 03/09/16 at 12:45; Stop 03/12/16 at 17:04; Status DC Magnesium Sulfate 2 gm/Sodium Chloride 100 ml @ 50 mls/hr UNSCH PRN IV For Magnesium 1.2 - 1.6 mg/dL; Start 03/09/16 at 12:45; Stop 03/12/16 at 17:04; Status DC Potassium Chloride 100 ml @ 50 mls/hr Q2H PRN IV For Potassium 2.8 - 3.2 mEq/L ; Start 03/09/16 at 12:45; Stop 03/12/16 at 17:04; Status DC Potassium Chloride 100 ml @ 50 mls/hr Q2H PRN IV For Potassium 3.3 - 3.5 mEq/L ; Start 03/09/16 at 12:45; Stop 03/12/16 at 17:04; Status DC Potassium Chloride 100 ml @ 50 mls/hr Q2H PRN IV For Potassium 2.8 - 3.2 mEq/L ; Start 03/09/16 at 12:45; Stop 03/12/16 at 17:04; Status DC Potassium Chloride (KCl 40 Meq Premix Inj) 100 ml @ 25 mls/hr UNSCH PRN IV For Potassium 3.3 - 3.5 mEq/L; Start 03/09/16 at 12:45; Stop 03/12/16 at 17:04; Status DC Potassium Chloride (KCl 40 Meq/30 ml Liq) 40 meq UNSCH PRN PO/TUBE For Potassium 3.3 - 3.5 mEq/L; Start 03/09/16 at 12:45; Stop 03/12/16 at 17:04; Status DC Potassium Chloride (KCl 40 Meq/30 ml Liq) 40 meq UNSCH PRN PO/TUBE SEE LABEL COMMENTS; Start 03/09/16 at 12:45; Stop 03/12/16 at 17:04; Status DC Potassium Phosphate (K-Phos) 2,000 mg Q4H PRN PO For Phosphorus < 2.5 mg/dL; Start 03/09/16 at 12:45; Stop 03/12/16 at 17:04; Status DC Potassium Phosphate 2000 mg 2,000 mg UNSCH PRN PO/TUBE SEE LABEL COMMENTS; Start 03/09/16 at 12:45; Stop 03/12/16 at 17:04; Status DC Potassium Phosphate 30 mmol/ Sodium Chloride 260 ml @ 42 mls/hr UNSCH PRN IV SEE LABEL COMMENTS; Start 03/09/16 at 12:45; Stop 03/12/16 at 17:04; Status DC Sodium Phosphate/ Sodium Chloride (Sodium Phosphate Inj/NS 250 ml Inj) 250 ml @ 42 mls/hr UNSCH PRN IV For Phosphorus < 2.5 mg/dL; Start 03/09/16 at 12:45; Stop 03/12/16 at 17:04; Status DC Dextrose (D50w (Vial) Inj) 25 ml UNSCH PRN IV PUSH HYPOGLYCEMIA-SEE COMMENTS; Start 03/09/16 at 12:45; Stop 03/10/16 at 10:06; Status DC Insulin Human Regular (NovoLIN R SUPPLEMENTAL SCALE) 1 Q6HR SQ ; Start 03/09/16 at 18:00; Stop 03/10/16 at 09:53; Status DC IV Flush (NS Flush) 2 ml UNSCH PRN IV FLUSH FLUSH AFTER USING IV ACCESS; Start 03/09/16 at 12:45; Stop 03/13/16 at 15:31; Status DC IV Flush (NS Flush) 2 ml BID IV FLUSH Last administered on 03/13/16t 08:39; Start 03/09/16 at 21:00; Stop 03/13/16 at 15:31; Status DC Acetaminophen (Tylenol) 650 mg Q6H PRN PO PAIN 1-10 AND/OR FEVER >101F Last administered on 03/12/16t 21:32; Start 03/09/16 at 12:45; Stop 03/13/16 at 15:31 ; Status DC Pantoprazole Sodium (Protonix Inj) 40 mg DAILY IV Last administered on 09:46; Start 03/10/16 at 09:00; Stop 03/10/16 at 09:53; Status DC Ondansetron HCl (Zofran Inj) 4 mg Q6H PRN IV NAUSEA OR VOMITING; Start at 12:45; Stop 03/13/16 at 15:31; Status DC Senna/Docusate Sodium (Zita-Colace) 2 tab BID PO Last administered on 21:32; Start 03/09/16 at 21:00; Stop 03/13/16 at 15:31; Status DC Albuterol/ Ipratropium (Duoneb Neb) 1 ampule Q2HR NEB PRN INH WHEEZING; Start 03/09/16 at 12:45; Stop 03/13/16 at 15:31; Status DC Miscellaneous Information 1 [id number] Last administered on 03/09/16 22:00; Start 03/09/16 at 12:45; Stop 03/13/16 at 15:31; Status DC Chlorhexidine Gluconate (Chlorhexidine 2% Cloth) 3 pack Taper DAILY@04 TOP Last administered on 03/13/16 03:59; Start 03/10/16 at 04:00; Stop 03/13/16 at 15:31; Status DC Chlorhexidine Gluconate (Chlorhexidine 2% Cloth) 3 pack UNSCH PRN TOP HYGIENIC CARE; Start 03/09/16 at 12:45; Stop 03/13/16 at 15:31; Status DC Pneumococcal Polyvalent Vaccine (Pneumovax-23 Inj) 25 mcg ONCE ONCE IM ; Start 03/10/16 at 09:00; Stop 03/10/16 at 09:01; Status DC Influenza Virus Vaccine (Flu (Quadrivalent) Vaccine Inj) 0.5 ml ONCE ONCE IM ; Start 03/10/16 at 09:00; Stop 03/10/16 at 09:01; Status DC Enoxaparin Sodium (Lovenox Inj) 90 mg Q24H SQ Last administered on 03/13/16 11 :10; Start 03/10/16 at 11:00; Stop 03/13/16 at 15:31; Status DC Dextrose (D50w (Vial) Inj) 25 ml UNSCH PRN IV PUSH HYPOGLYCEMIA-SEE COMMENTS; Start 03/10/16 at 09:45; Stop 03/13/16 at 11:36; Status DC Insulin Human Regular (NovoLIN R SUPPLEMENTAL SCALE) 1 ACHS AND 3AM SQ ; Start 03/10/16 at 11:00; Stop 03/13/16 at 11:36; Status DC Famotidine (Pepcid) 20 mg BID PO Last administered on 03/13/16 08:25; Start at 21:00; Stop 03/13/16 at 15:31; Status DC Clonazepam (KlonoPIN) 0.25 mg BID PRN PO ANXIETY Last administered on 11:10; Start 03/10/16 at 18:15; Stop 03/13/16 at 15:31; Status DC Mirtazapine (Remeron) 15 mg BID PO Last administered on 03/13/16 08:26; Start 03/10/16 at 21:00; Stop 03/13/16 at 15:31; Status DC Miscellaneous (Pill Splitter) 1 ea UNSCH PRN OTHER SEE LABEL COMMENTS; Start at 18:15; Stop 03/13/16 at 15:31; Status DC Paroxetine HCl (Paxil) 30 mg DAILY PO Last administered on 03/13/16 08:22; Start 03/11/16 at 10:30; Stop 03/13/16 at 15:31; Status DC Vital Signs / I&O Vital Signs Date Time Temp Pulse Resp B/P Pulse Ox O2 Delivery O2 Flow Rate FiO2 03/13/16 12:21 65 03/13/16 12:00 98.0 81 18 105/70 98 03/13/16 09:12 96 03/13/16 08:45 96 Room Air 03/13/16 08:00 97.7 77 18 115/66 96 03/13/16 04:00 97.3 69 18 112/69 97 03/13/16 00:00 96.1 53 18 113/72 98 03/12/16 20:00 65 03/12/16 20:00 97.5 69 18 95/59 96 03/12/16 19:45 Room Air I/O 03/12/16 03/12/16 03/12/16 03/13/16 03/13/16 1/27/17 07:00 15:00 23:00 07:00 15:00 23:00 Intake Total 350 ml 420 ml 720 ml 480 ml 0 ml Output Total 225 ml 500 ml Balance 125 ml -80 ml 720 ml 480 ml 0 ml Intake Oral 350 ml 420 ml 720 ml 480 ml IV Total 0 ml Output Urine Total 225 ml 500 ml # Voids 1 1 # Bowel Movements 1 Physical Exam GENERAL: NAD, AAOx3 SKIN: Warm and dry. HEAD: Atraumatic. Normocephalic. EYES: Pupils equal and round. No scleral icterus. No injection or drainage. ENT: No nasal bleeding or discharge. Mucous membranes pink and moist. NECK: Trachea midline. No JVD. CARDIOVASCULAR: Regular rate and rhythm. RESPIRATORY: No accessory muscle use. Decreased breath sounds bilaterally GASTROINTESTINAL: Abdomen soft, non-tender, nondistended. Hepatic and splenic margins not palpable. MUSCULOSKELETAL: Extremities without clubbing, cyanosis, or edema. No obvious deformities. NEUROLOGICAL: Awake and alert. No obvious cranial nerve deficits. Motor grossly within normal limits. Five out of 5 muscle strength in the arms and legs. Normal speech. PSYCHIATRIC: Appropriate mood and affect; insight and judgment normal. Laboratory Laboratory Tests Test 03/13/16 04:50 White Blood Count 7.2 TH/MM3 Red Blood Count 3.48 MIL/MM3 Hemoglobin 12.0 GM/DL Hematocrit 34.7 % Mean Corpuscular Volume 99.7 FL Mean Corpuscular Hemoglobin 34.5 PG Mean Corpuscular Hemoglobin 34.6 % Concent Red Cell Distribution Width 13.8 % Platelet Count 301 TH/MM3 Mean Platelet Volume 7.4 FL Sodium Level 143 MEQ/L Potassium Level 4.4 MEQ/L Chloride Level 108 MEQ/L Carbon Dioxide Level 32.0 MEQ/L Anion Gap 3 MEQ/L Blood Urea Nitrogen 13 MG/DL Creatinine 0.82 MG/DL Estimat Glomerular Filtration 97 ML/MIN Rate Random Glucose 74 MG/DL Calcium Level 8.4 MG/DL Assessment and Plan Problem List: (1) Saddle pulmonary embolus (2) NSTEMI (non-ST elevated myocardial infarction) Assessment and Plan 1) Doing well, started on Xarelto 2) Echo showing normal RV size and function 3) Outpatient work up for cancer screening, prostate/colon, etc, spoke to Vinh about finding a primary to start this 4) Spoke to Vinh about tobacco abuse, trying to use his E-cig as a way of quitting smoking, decreased from 24 to 6 Problem Qualifiers (1) Saddle pulmonary embolus: Qualified Code: I26.02 - Acute saddle pulmonary embolism with acute cor pulmonale Cosme Rosario DO Mar 13, 2016 16:57
== END 2016-03-13 15:29 | disposition home or self-care (01) | DRG 280 ==
LOC: NEPE 09:03 → NEDA 12:07 → HIME 19:50 → N04B 03-12 16:08
PROVIDERS: ADMIT Family Medicine; ATTEND Family Medicine
DX: I21.4 Non-ST elevation (NSTEMI) myocardial infarction (principal); I26.92 Saddle embolus of pulmonary artery without acute cor pulmonale; I27.2 Other secondary pulmonary hypertension; I10 Essential (primary) hypertension; D64.9 Anemia, unspecified; I45.10 Unspecified right bundle-branch block; J44.9 Chronic obstructive pulmonary disease, unspecified; K21.9 Gastro-esophageal reflux disease without esophagitis; F17.210 Nicotine dependence, cigarettes, uncomplicated; Z59.0 Homelessness
CPT/HCPCS: 51702; 71010; 71275; 80048; 80053; 82435; 82550; 82552; 82565; 82947; 82948; 83605; 83690; 83735; 83880; 84132; 84295; 84484; 84520; 85014; 85018; 85025; 85027; 85379; 85610; 85730; 87040; 87641; 87804; 93005; 93306; 93308; 94150; 94640; 94664; 94667; 94668; 96361; 96365; 96375; 99292; C9113; J1644; J1650; J2405; J2543; J2930; J2997; J3370; J7030; J7050; Q9967